=== PATIENT | female | born 1955 | race Caucasian/White ===

== ENCOUNTER 2016-07-21 14:10 | Outpatient (CLI) | payer MEDICARE | END 2016-07-21 23:59 | DX: R41.82 Altered mental status, unspecified (principal) ==

== ENCOUNTER 2016-08-02 15:44 | Outpatient (CLI) | payer MEDICARE | END 2016-08-02 15:45 | disposition home or self-care (01) | DX: Z79.899 Other long term (current) drug therapy (principal) ==

== ENCOUNTER 2016-08-24 12:12 | Outpatient (CLI) | payer MEDICARE | END 2016-08-24 12:13 | disposition home or self-care (01) | DX: M25.551 Pain in right hip (principal) ==

== ENCOUNTER 2016-08-24 13:15 | Inpatient (IN) | payer MEDICARE ==
[2016-08-24] MEDS ORDERED: ACETAMINOPHEN 1,000 MG/100 ML 100 ML IV STA (13:48)
[2016-08-24] MEDS ORDERED: ACETAMINOPHEN 1,000 MG/100 ML 100 ML IV ONE (13:50)
[2016-08-24] MEDS ORDERED: ONDANSETRON ODT 4 MG TABLET TL PRN (13:55)
[2016-08-24] MEDS ORDERED: ACETAMINOPHEN 325 MG TABLET PO PRN (13:55)
[2016-08-24] MEDS ORDERED: ONDANSETRON 4 MG/2 ML VIAL IVP PRN (13:55)
[2016-08-24] MEDS ORDERED: SODIUM CHLORIDE FLUSH 0.9% 10 ML SYRINGE IVP PRN (13:55)
[2016-08-24] MEDS ORDERED: lamoTRIgine 100 MG TABLET PO SCH (14:00)
[2016-08-24] MEDS: SODIUM CHLORIDE FLUSH 0.9% 10 ML SYRINGE IVP SCH ×2 (15:35→21:49)
[2016-08-24] MEDS: HYDROmorphone 1 MG/ML SYRINGE IVP PRN (18:35)
[2016-08-24] MEDS ORDERED: cefTRIAXone 500 MG VIAL IVP SCH (18:40)
[2016-08-24] MEDS: cefTRIAXone 1 GM in SODIUM CHLORIDE 0.9% MINIBAG 100 ML IV SCH (19:11)
[2016-08-24] MEDS: levETIRAcetam 250 MG TABLET PO SCH (21:38)
[2016-08-24] MEDS: ATORVASTATIN 10 MG TABLET PO SCH (21:38)
[2016-08-24] MEDS: DOCUSATE SODIUM 100 MG CAPSULE PO SCH (21:39)
[2016-08-24] MEDS: lamoTRIgine 25 MG TABLET PO SCH (21:39)
[2016-08-24] MEDS: oxyCODONE 5 MG TABLET PO PRN (21:45)
[2016-08-25] MEDS: SODIUM CHLORIDE 0.9% 1,000 ML IV SCH ×2 (01:24→16:27)
[2016-08-25] MEDS: HYDROmorphone 1 MG/ML SYRINGE IVP PRN ×3 (02:01→10:18)
[2016-08-25] MEDS: SODIUM CHLORIDE FLUSH 0.9% 10 ML SYRINGE IVP SCH ×3 (05:13→22:14)
[2016-08-25] MEDS ORDERED: ASPIRIN EC 81 MG TABLET PO SCH (09:00)
[2016-08-25] MEDS: cefTRIAXone 1 GM in SODIUM CHLORIDE 0.9% MINIBAG 100 ML IV SCH (09:01)
[2016-08-25] MEDS: lamoTRIgine 25 MG TABLET PO SCH ×2 (09:05→20:08)
[2016-08-25] MEDS: DOCUSATE SODIUM 100 MG CAPSULE PO SCH ×2 (09:12→20:09)
[2016-08-25] MEDS: POLYETHYLENE GLYCOL 3350 17 GM PACKET PO SCH (09:12)
[2016-08-25] MEDS ORDERED: PROPOFOL 200 MG/20 ML VIAL IVP ONE (11:52)
[2016-08-25] MEDS ORDERED: ACETAMINOPHEN 1,000 MG/100 ML VIAL IV ONE (11:52)
[2016-08-25] MEDS ORDERED: PHENYLEPHRINE 50 MG/5 ML VIAL IV ONE (11:52)
[2016-08-25] MEDS ORDERED: TRANEXAMIC ACID 1,000 MG/10 ML VIAL IV ONE (11:52)
[2016-08-25] MEDS ORDERED: DEXAMETHASONE 4 MG/ML VIAL IVP ONE (11:52)
[2016-08-25] MEDS ORDERED: MIDAZOLAM 2 MG/2 ML VIAL IVP ONE (11:52)
[2016-08-25] MEDS ORDERED: ceFAZolin 2 GM/50 ML 50 ML IV ONE (12:24)
[2016-08-25] MEDS ORDERED: LACTATED RINGERS 1,000 ML IV ONE (13:07)
[2016-08-25] MEDS ORDERED: ONDANSETRON 4 MG/2 ML VIAL IVP PRN (14:40)
[2016-08-25] MEDS: ceFAZolin 2 GM/50 ML 50 ML IV SCH (19:57)
[2016-08-25] MEDS: ATORVASTATIN 10 MG TABLET PO SCH (20:09)
[2016-08-25] MEDS: levETIRAcetam 250 MG TABLET PO SCH (20:09)
[2016-08-25] MEDS: risperiDONE 1 MG TABLET PO SCH (22:13)
[2016-08-26] MEDS: HYDROmorphone 1 MG/ML SYRINGE IVP PRN ×3 (00:38→10:04)
[2016-08-26] MEDS: SODIUM CHLORIDE FLUSH 0.9% 10 ML SYRINGE IVP PRN (00:39)
[2016-08-26] MEDS: ceFAZolin 2 GM/50 ML 50 ML IV SCH (04:28)
[2016-08-26] MEDS: SODIUM CHLORIDE 0.9% 1,000 ML IV SCH ×3 (04:29→22:06)
[2016-08-26] MEDS: SODIUM CHLORIDE FLUSH 0.9% 10 ML SYRINGE IVP SCH ×3 (05:05→21:15)
[2016-08-26] MEDS: POLYETHYLENE GLYCOL 3350 17 GM PACKET PO SCH (08:56)
[2016-08-26] MEDS: cefTRIAXone 1 GM in SODIUM CHLORIDE 0.9% MINIBAG 100 ML IV SCH (08:57)
[2016-08-26] MEDS: ASPIRIN EC 325 MG TABLET PO SCH (08:57)
[2016-08-26] MEDS: lamoTRIgine 25 MG TABLET PO SCH ×2 (08:57→21:19)
[2016-08-26] MEDS: DOCUSATE SODIUM 100 MG CAPSULE PO SCH ×2 (08:57→21:18)
[2016-08-26] MEDS: oxyCODONE 5 MG TABLET PO PRN (18:46)
[2016-08-26] MEDS ORDERED: risperiDONE 1 MG/ML SOLUTION PO SCH (21:00)
[2016-08-26] MEDS ORDERED: risperiDONE 1 MG TABLET PO SCH ×2 (21:00→22:00)
[2016-08-26] MEDS: levETIRAcetam 250 MG TABLET PO SCH (21:15)
[2016-08-26] MEDS: risperiDONE 1 MG TABLET PO SCH (21:18)
[2016-08-26] MEDS: ATORVASTATIN 10 MG TABLET PO SCH (21:19)
[2016-08-26] MEDS: NITROFURANTOIN MACRO 100 MG CAPSULE PO SCH (21:21)
[2016-08-27] MEDS: HYDROmorphone 1 MG/ML SYRINGE IVP PRN ×4 (05:48→20:58)
[2016-08-27] MEDS: SODIUM CHLORIDE FLUSH 0.9% 10 ML SYRINGE IVP SCH ×3 (05:49→21:01)
[2016-08-27] MEDS: SODIUM CHLORIDE FLUSH 0.9% 10 ML SYRINGE IVP PRN (10:17)
[2016-08-27] MEDS: POLYETHYLENE GLYCOL 3350 17 GM PACKET PO SCH (10:37)
[2016-08-27] MEDS: SODIUM CHLORIDE 0.9% 1,000 ML IV SCH ×2 (10:37→21:01)
[2016-08-27] MEDS: lamoTRIgine 25 MG TABLET PO SCH ×2 (10:38→20:50)
[2016-08-27] MEDS: NITROFURANTOIN MACRO 100 MG CAPSULE PO SCH ×2 (10:38→20:50)
[2016-08-27] MEDS: DOCUSATE SODIUM 100 MG CAPSULE PO SCH ×2 (10:38→20:51)
[2016-08-27] MEDS: ASPIRIN EC 325 MG TABLET PO SCH (10:38)
[2016-08-27] MEDS: ATORVASTATIN 10 MG TABLET PO SCH (20:50)
[2016-08-27] MEDS: levETIRAcetam 250 MG TABLET PO SCH (20:51)
[2016-08-27] MEDS: risperiDONE 1 MG TABLET PO SCH (21:01)
[2016-08-28] MEDS: SODIUM CHLORIDE FLUSH 0.9% 10 ML SYRINGE IVP SCH (06:31)
[2016-08-28] MEDS ORDERED: DOCUSATE SODIUM 250 MG CAPSULE PO SCH (09:00)
[2016-08-28] MEDS ORDERED: SENNA 8.6 MG TABLET PO SCH (09:00)
[2016-08-28] MEDS: lamoTRIgine 25 MG TABLET PO SCH (09:56)
[2016-08-28] MEDS: ASPIRIN EC 325 MG TABLET PO SCH (09:57)
[2016-08-28] MEDS: POLYETHYLENE GLYCOL 3350 17 GM PACKET PO SCH (09:57)
[2016-08-28] MEDS: NITROFURANTOIN MACRO 100 MG CAPSULE PO SCH (09:57)
[2016-08-28] MEDS: DOCUSATE SODIUM 100 MG CAPSULE PO SCH (09:57)
[2016-08-28] MEDS: oxyCODONE 5 MG TABLET PO PRN (09:58)
== END 2016-08-28 10:35 | DRG 470 ==
PROC: 0SRR01Z Replacement of Right Hip Joint, Femoral Surface with Metal Synthetic Substitute, Open Approach (ICD-10-PCS; principal; 2016-08-25 12:00)
PROC: 30233N1 Transfusion of Nonautologous Red Blood Cells into Peripheral Vein, Percutaneous Approach (ICD-10-PCS; 2016-08-26)
DX: S72.031A Displaced midcervical fracture of right femur, initial encounter for closed fracture (principal); S72.001A Fracture of unspecified part of neck of right femur, initial encounter for closed fracture; W19.XXXA Unspecified fall, initial encounter; N18.9 Chronic kidney disease, unspecified; D64.9 Anemia, unspecified; R56.9 Unspecified convulsions; Z86.73 Personal history of transient ischemic attack (TIA), and cerebral infarction without residual deficits; G11.9 Hereditary ataxia, unspecified; D62 Acute posthemorrhagic anemia; N39.0 Urinary tract infection, site not specified; R64 Cachexia; W18.30XA Fall on same level, unspecified, initial encounter; Y92.481 Parking lot as the place of occurrence of the external cause; G40.909 Epilepsy, unspecified, not intractable, without status epilepticus; R13.10 Dysphagia, unspecified; I69.319 Unspecified symptoms and signs involving cognitive functions following cerebral infarction; N18.3 Chronic kidney disease, stage 3 (moderate); D63.8 Anemia in other chronic diseases classified elsewhere; G93.89 Other specified disorders of brain; K21.9 Gastro-esophageal reflux disease without esophagitis; E78.5 Hyperlipidemia, unspecified; M81.0 Age-related osteoporosis without current pathological fracture; Y83.8 Other surgical procedures as the cause of abnormal reaction of the patient, or of later complication, without mention of misadventure at the time of the procedure; Z66 Do not resuscitate; Z91.81 History of falling; Z92.21 Personal history of antineoplastic chemotherapy; Z92.3 Personal history of irradiation; Z79.82 Long term (current) use of aspirin; Z68.20 Body mass index [BMI] 20.0-20.9, adult

== ENCOUNTER 2016-10-04 06:53 | Outpatient (CLI) | payer MEDICARE | END 2016-10-04 06:54 | disposition critical access hospital (66) | LOC: EMS 06:53 | PROVIDERS: ATTEND Surgery | DX: M54.5 Low back pain (principal); Z91.81 History of falling | CPT/HCPCS: A0425; A0429 ==

== ENCOUNTER 2016-10-04 07:10 | Emergency (ER) | payer MEDICARE ==
[2016-10-04] MEDS ORDERED: LIDOCAINE PATCH 5% TOP STA (07:18)
--- NOTE | 2016-10-04 07:21 | ED Physician Documentation ---
History of Present Illness - Stated complaint Stated Complaint: GLF - Chief complaint Chief Complaint: Back Pain - Additonal information Additional information: hx from pt 61 female mechanical fall on her bathroom 3 days ago landed on buttocks no head or neck injury no blood thinners intermittent pain to l spine region no numbness weakness or urinary sx wants an xray otherwise well recently, no fever cough NVD, CP SOA etc Review of Systems Constitutional: denies: Fever Cardiac: denies: Chest pain / pressure Respiratory: denies: Dyspnea GI: denies: Abdominal Pain, Nausea, Vomiting : denies: Dysuria, Incontinent, Hematuria Musculoskeletal: reports: Back pain Neurologic: denies: Focal weakness, Numbness Endocrine: denies: Easy bruising / bleeding Immunocompromised: denies: Immunocompromised PD PAST MEDICAL HISTORY - Past Medical History Cardiovascular: High cholesterol Neuro: Seizure disorder, Other GI: GERD : Renal insuffiency Psych: Depression, Anxiety Musculoskeletal: Osteoporosis - Past Surgical History Past Surgical History: Yes Neuro: Other - Present Medications Home Medications: Ambulatory Orders Medication Instructions Recorded Confirmed Acetaminophen [Tylenol] 650 mg PO Q6H PRN 08/24/16 10/04/16 Aspirin [Aspirin EC] 81 mg PO DAILY 08/24/16 10/04/16 Chlorpheniramine Maleate [Allergy] 4 mg PO Q6H PRN MDD 16 mg 08/24/16 10/04/16 Docusate Sodium 200 mg PO BID 08/24/16 10/04/16 Levetiracetam 500 mg PO QPM 08/24/16 10/04/16 Simvastatin [Zocor] 20 mg PO QPM 08/24/16 10/04/16 lamoTRIgine [LaMICtal] 75 mg PO BID 08/24/16 10/04/16 HYDROcodone/ACET 10/325 [[place] 10 1 each PO Q6H #30 tablet 08/28/16 10/04/16 mg/325 mg] oxyCODONE [Roxicodone] 5 mg PO Q4-6H #20 tablet 10/04/16 - Allergies Allergies/Adverse Reactions: Allergies Allergy/AdvReac Type Severity Reaction Status Date / Time No Known Drug Allergies Allergy Verified 10/04/16 07:23 - Social History Does the pt smoke?: No Smoking Status: Never smoker Does the pt drink ETOH?: No Does the pt have substance abuse?: No - POLST Patient has POLST: No PD ED PE NORMAL - Vitals Vital signs reviewed: Yes - General General: Alert and oriented X 3 - HEENT HEENT: Atraumatic - Neck Neck: No bony TTP - Cardiac Cardiac: RRR - Respiratory Respiratory: No respiratory distress, Clear bilaterally - Abdomen Abdomen: Non tender - Back Back: Other (mild upper to mid diffuse mid and ryann low back TTP, good ROM with midl pain) - Derm Derm: Normal color - Neuro Neuro: No motor deficit, No sensory deficit, Other (hip flex knee ext foot dorsi /plantar and great toe all 5/5, no clonus, patellar DTR 1+/4 ryann. denies saddle anesthesia) Results - Vitals Vitals: Vital Signs - 24 hr 10/04/16 10/04/16 10/04/16 07:11 09:20 11:00 Temperature 37 C Heart Rate 97 88 82 Respiratory 18 20 20 Rate Blood Pressure 119/78 112/76 O2 Saturation 97 96 96 10/04/16 13:40 Temperature Heart Rate 72 Respiratory 16 Rate Blood Pressure 131/75 H O2 Saturation 96 Oxygen O2 Source Room air - EKG (time done) 1007 Rate: Rate (enter#) Rhythm: NSR Intervals: Normal AR. No: Wide QRS (borderline, non specific) Ischemia: Normal ST segments - Rads (name of study) lspine Radiology: See rad report (30% L2 and 15% T12 compression fx mild retropulsion L2 by 4 mm, rec MRI 9or CT after d/w radia)) CXR Radiology: See rad report (no acute) CT T10-L spine Radiology: See rad report (rad report and verbal d/w radia : acute 2 column A3 burtt fx T12 with fragment retropulsion not presently impinging cord, canal stenosis T12 L2, no foraminal stenosis) PD MEDICAL DECISION MAKING - ED course ED course: obtained spine consult from [facility] - images sent and review - I spoke wit spine Dr Roberts who ec conservative tx with TLSO brace which was applied in the ER - family understands need for spine fup and will ask their PMD and/or ortho for a local referral rather than go to [place] brace placed by [employer] rep and myself, pt tolerated well, POA family taught how to manage brace anbd given written instruction and card for rep with phone number for assistance dc home to her assisted living, she has a walker and will have family with her Departure - Departure Disposition: 01 Home, Self Care Clinical Impression: T10 vertebral fracture Qualifiers: Encounter type: initial encounter Fracture type: closed Fracture morphology: burst- stable Qualified Code(s): S22.071A - Stable burst fracture of T9-T10 vertebra, initial encounter for closed fracture Condition: Good Instructions: ED Fx Comp Vertebral Follow-Up: Sofia Mccormack MD [Primary Care Provider] - Ghazala Chand MD [Provider Admit Priv/Credential] - Prescriptions: oxyCODONE [Roxicodone] 5 mg PO Q4-6H #20 tablet Comments: You have a burst fracture of the T12 spine You images were reviewed by the clinical trial specialist at [facility] and the recommendation is that you wear the brace to stabilize your spine while the bone heals. Take tylenol for mild pain and oxycodone for severe pain Please follow up with your local PMD and/or surgical training specialist for a recheck and ongoing pain medication if needed and for a referral to a local clinical trial specialist for follow up Return if worse - especially if you have numbness or weakness or trouble with your urine Discharge Date/Time: 10/04/16 13:42
[2016-10-04] MEDS ORDERED: LIDOCAINE PATCH 5% TOP ONE (08:00)
--- NOTE | 2016-10-04 09:05 | XRAY Preliminary Report ---
Exam: XR Lumbar Spine 2 View IMPRESSION: 1. Age indeterminate 30% L2 and 15% T12 superior endplate compression fractures. MRI could be conside red to assess for any acute edema. 2. Mild retropulsion of superior endplate fracture of L2 by 4 mm. 3. No significant degenerative disk disease or malalignment. [facility] SITE ID: [id number]
--- NOTE | 2016-10-04 09:08 | XRAY Report ---
EXAM: LUMBOSACRAL SPINE RADIOGRAPHY EXAM DATE: 10/04/2016 07:42 AM. CLINICAL HISTORY: Lumbar spine pain after falling on buttocks 2 days ago. COMPARISONS: None. TECHNIQUE: 3 views. FINDINGS: Alignment: No significant scoliosis. No listhesis evident. Bones: 30% anterior superior endplate compression fracture of L2 present. The fracture is age-indeter minate. No acute appearing fracture lucencies identified however. There is mild retropulsion of the s uperior endplate measuring 4 mm. There is also a compression fracture of T12 measuring approximately 15% also indeterminate in age. No retropulsion evident. 5 nonrib-bearing lumbar elements present. Disks: The lumbar disks are well-preserved. No significant degenerative disk disease identified. Facets: Mild degenerative facet disease lower lumbar spine noted. Sacroiliac Joints: Unremarkable. Soft Tissues: A right unipolar hip prosthesis present. IMPRESSION: 1. Age indeterminate 30% L2 and 15% T12 superior endplate compression fractures. MRI could be conside red to assess for any acute edema. 2. Mild retropulsion of superior endplate fracture of L2 by 4 mm. 3. No significant degenerative disk disease or malalignment. [facility] Referring Provider Line: [phone] SITE ID: [id number]
[2016-10-04] MEDS ORDERED: ACETAMINOPHEN 325 MG TABLET PO STA (09:19)
[2016-10-04] MEDS ORDERED: LORazepam 0.5 MG TABLET PO STA (09:22)
[2016-10-04] MEDS ORDERED: ACETAMINOPHEN 325 MG TABLET PO ONE (09:23)
[2016-10-04] MEDS ORDERED: LORazepam 0.5 MG TABLET ONE (09:24)
[2016-10-04] MEDS ORDERED: LORazepam 2 MG/ML SYRINGE IM STA (09:27)
[2016-10-04] MEDS ORDERED: LORazepam 2 MG/ML SYRINGE ONE (09:29)
--- NOTE | 2016-10-04 10:37 | CT Preliminary Report ---
Exam: CT Lumbar Spine W/O Impression: 1. Acute appearing incomplete burst fracture of the superior T12 vertebral body with fracture fragmen t retropulsion. 2. Old healed L2 vertebral body superior endplate fracture. 3. Central canal stenosis at T12 and at L2. 4. No evidence for significant-appearing foraminal stenosis. [facility] SITE ID: [id number]
--- NOTE | 2016-10-04 10:40 | CT Report ---
EXAM: CT LUMBAR SPINE WITHOUT CONTRAST EXAM DATE: 10/04/2016 09:50 AM. CLINICAL HISTORY: Pain post injury after a fall. Spine fracture follow-up. COMPARISONS: No prior CT.. TECHNIQUE: Thin-section axial images were acquired of the lumbar spine from T10 to S1 without contras t. Post-processing: Coronal and sagittal reformats. Other: None. In accordance with CT protocol optimization, one or more of the following dose reduction techniques w ere utilized for this exam: automated exposure control, adjustment of mA and/or KV based on patient s ize, or use of iterative reconstructive technique. FINDINGS: No scoliosis or spondylolisthesis. Moderately prominent but chronic healed L2 vertebral body superior endplate fracture with chronically posteriorly displaced or angulated fracture fragment that appear healed. Mild to moderate associated central canal stenosis and ventral thecal sac indentation. Acute appearing fracture of the superior T12 vertebral body associated with up to 40% vertebral body height loss. The configuration is consistent with an incomplete burst fracture involving the superior endplate and posterior vertebral body wall with mild posterior fracture fragment retropulsion into t he central canal, by approximately 5 mm, associated bony central canal narrowing appears mild. Multip le mildly comminuted and displaced superior T12 vertebral body fracture fragments are present. No riley dence for displaced posterior element fracture. T12-L1: No disk herniation or stenosis. L1-L2: Patent foramina. Mild degenerative disk disease. Central canal stenosis from old healed L2 fra cture. L2-L3: Mildly bulging annulus. No significant stenosis. L3-L4: Mild degenerative disk disease and facet arthropathy. Broad-based disk bulge with partially ca lcified annulus to the right of midline. No significant-appearing stenosis. L4-L5: Mild degenerative disk disease and facet arthropathy. Shallow broad-based bulge. Minimal steno sis. No evidence for nerve root compression. L5-S1: Mild chronic degenerative changes. No severe stenosis. Minimal SI joint DJD. Probable generalized skeletal demineralization. Mild diffuse posterior paraspin al muscle fatty atrophy. Impression: 1. Acute appearing incomplete burst fracture of the superior T12 vertebral body with fracture fragmen t retropulsion. 2. Old healed L2 vertebral body superior endplate fracture. 3. Central canal stenosis at T12 and at L2. 4. No evidence for significant-appearing foraminal stenosis. [facility] Referring Provider Line: [phone] SITE ID: [id number]
--- NOTE | 2016-10-04 11:08 | XRAY Preliminary Report ---
Exam: XR Chest 2 View PA/LAT IMPRESSION: 1. No acute disease in the chest. 2. Mild to moderate superior endplate T12 and L2 compression deformities, age indeterminate. [facility] SITE ID: [id number]
--- NOTE | 2016-10-04 11:10 | XRAY Report ---
EXAM: CHEST RADIOGRAPHY EXAM DATE: 10/04/2016 10:07 AM. CLINICAL HISTORY: Fall, back pain, now shortness of air too. COMPARISON: None. TECHNIQUE: 2 views. FINDINGS: Lungs/Pleura: No focal opacities evident. No pleural effusion. No pneumothorax. Normal volumes. Mediastinum: Heart size is normal. Aorta is mildly tortuous. Other: Superior endplate mild to moderate compression upon the seen involving T12. Findings are simil ar seen involving L2. IMPRESSION: 1. No acute disease in the chest. 2. Mild to moderate superior endplate T12 and L2 compression deformities, age indeterminate. [facility] Referring Provider Line: [phone] SITE ID: [id number]
[2016-10-04 14:00] VITALS: BP 131/75
== END 2016-10-04 13:42 | disposition home or self-care (01) ==
LOC: EDUNIT# → ED 07:10
DX: S22.071A Stable burst fracture of T9-T10 vertebra, initial encounter for closed fracture (principal); W01.0XXA Fall on same level from slipping, tripping and stumbling without subsequent striking against object, initial encounter; Y92.002 Bathroom of unspecified non-institutional (private) residence as the place of occurrence of the external cause; E78.00 Pure hypercholesterolemia, unspecified; K21.9 Gastro-esophageal reflux disease without esophagitis; Z79.82 Long term (current) use of aspirin
CPT/HCPCS: 71020; 72100; 72131; 93005; 99283

== ENCOUNTER 2016-10-04 19:35 | Outpatient (CLI) | payer MEDICARE | END 2016-10-04 19:36 | disposition critical access hospital (66) | LOC: EMS 19:35 | PROVIDERS: ATTEND Surgery | DX: M54.9 Dorsalgia, unspecified (principal); W19.XXXA Unspecified fall, initial encounter; Z91.81 History of falling | CPT/HCPCS: A0425; A0429 ==

== ENCOUNTER 2016-10-04 19:55 | Emergency (ER) | payer MEDICARE ==
--- NOTE | 2016-10-05 02:42 | ED Physician Documentation ---
PD HPI BACK INJURY - Stated complaint Stated Complaint: GLF, S/P COMPRESSION FRACTURE - History obtained from History obtained from: Patient, Family - History of Present Illness Location: Lower Type of injury: Fall Where injury occurred: Home Timing - onset: How many days ago (4) Timing - duration: Days (4) Timing - details: Gradual onset, Still present Quality: Pain, Spasm, Sharp Improved by: Rest, Immobilization Worsened by: Moving, Palpating Associated symptoms: No: Fever, Weakness, Numbness, Incontinent of urine, Unable to urinate, Hematuria, Incontinent of stool Contributing factors: No: Anticoagulated Similar symptoms before: Has not had sx before Recently seen: Emergency Dept (Seen here earlier today with this pain and dx with a new T12 incomplete burst fracture.) - Additional information Additional information: 61 y/o female with a history of cerebellar tumor and CVA had a fall at her assisted living facility about 3 days ago and she had progression of pain and today she asked to come to the ED. Imaging shows a new compression fracture and she was placed into a TLSO brace. She went back to her assisted living facility and she was having an issue with the brace being uncomfortable and she cut the adjustment lines to it and attempted to stand up to go to the bathroom and her walker was turned the wrong way and she sat down to the ground. She did not have a fall and was assisted to the ground. She has had a recent hip fracture and was at [facility] for recovery until about 4 days ago. She has a prior history of falls associated with her cerebellar dysfunction and she is in assisted living after having 3 falls in 90 days. Review of Systems Constitutional: denies: Fever, Myalgias Eyes: denies: Decreased vision Ears: denies: Ear pain Nose: denies: Congestion Throat: denies: Sore throat Cardiac: denies: Chest pain / pressure, Palpitations Respiratory: denies: Dyspnea, Cough GI: denies: Abdominal Pain, Nausea, Vomiting : denies: Dysuria, Frequency Skin: denies: Rash Musculoskeletal: reports: Back pain Neurologic: denies: Generalized weakness, Focal weakness PD PAST MEDICAL HISTORY - Past Medical History Cardiovascular: High cholesterol Neuro: CVA, Seizure disorder, Other GI: GERD : Renal insuffiency Psych: Depression, Anxiety Musculoskeletal: Osteoporosis Other Past Medical History: brain tumor - Past Surgical History Past Surgical History: Yes Ortho: Hip replacement Neuro: Other - Present Medications Home Medications: Ambulatory Orders Medication Instructions Recorded Confirmed Acetaminophen [Tylenol] 650 mg PO Q6H PRN 08/24/16 10/04/16 Aspirin [Aspirin EC] 81 mg PO DAILY 08/24/16 10/04/16 Chlorpheniramine Maleate [Allergy] 4 mg PO Q6H PRN MDD 16 mg 08/24/16 10/04/16 Docusate Sodium 200 mg PO BID 08/24/16 10/04/16 Levetiracetam 500 mg PO QPM 08/24/16 10/04/16 Simvastatin [Zocor] 20 mg PO QPM 08/24/16 10/04/16 lamoTRIgine [LaMICtal] 75 mg PO BID 08/24/16 10/04/16 HYDROcodone/ACET 10/325 [[place] 10 1 each PO Q6H #30 tablet 08/28/16 10/04/16 mg/325 mg] oxyCODONE [Roxicodone] 5 mg PO Q4-6H #20 tablet 10/04/16 10/04/16 - Allergies Allergies/Adverse Reactions: Allergies Allergy/AdvReac Type Severity Reaction Status Date / Time No Known Drug Allergies Allergy Verified 10/04/16 20:13 - Social History Does the pt smoke?: No Smoking Status: Never smoker Does the pt drink ETOH?: No Does the pt have substance abuse?: No - Immunizations Immunizations are current?: Yes - POLST Patient has POLST: No PD ED PE NORMAL - Vitals Vital signs reviewed: Yes (hypertensive ) - General General: No acute distress, Well developed/nourished - HEENT HEENT: Atraumatic, PERRL - Neck Neck: Supple, no meningeal sign - Cardiac Cardiac: RRR, No murmur - Respiratory Respiratory: No respiratory distress, Clear bilaterally - Abdomen Abdomen: Soft, Non tender - Back Back: No CVA TTP, Other (There is midline tenderness to the lower portion of the thoracic spine. ) - Derm Derm: Normal color, No rash - Extremities Extremities: No deformity, No edema - Neuro Neuro: No motor deficit, No sensory deficit - Psych Psych: Other (The mood is withdrawn and the affect is flat. ) Results - Vitals Vitals: Vital Signs - 24 hr 10/04/16 10/04/16 19:59 22:58 Temperature 36.5 C Heart Rate 95 85 Respiratory 12 15 Rate Blood Pressure 152/81 H 135/82 H O2 Saturation 100 97 Oxygen O2 Source Room air PD MEDICAL DECISION MAKING - ED course Complexity details: reviewed old records, reviewed results, re-evaluated patient , considered differential, d/w patient, d/w family ED course: 61 y/o female with a new T12 fracture with a recent hip fracture as well is still a risk for fall and will need more help than her assisted living facility until her fracture is healed. She is left in the ED overnight for an attempt at placement to [place] in the AM. Departure - Departure Clinical Impression: T12 vertebral fracture Qualifiers: Encounter type: initial encounter Fracture type: closed Fracture morphology: burst- stable Qualified Code(s): S22.081A - Stable burst fracture of T11-T12 vertebra, initial encounter for closed fracture Condition: Stable
[2016-10-05 04:41] LABS: BILIRUBIN,URINE NEGATIVE (NEGATIVE); PH,URINE 5.5 PH (5.0-7.5)
[2016-10-05 04:42] LABS: UA w/ MICROSCOPIC CHARGE YES
[2016-10-05 04:46] LABS: UR CULTURE IF IND NOT INDICATED
--- NOTE | 2016-10-05 07:45 | ED Physician Documentation ---
History of Present Illness - Stated complaint Stated Complaint: GLF, S/P COMPRESSION FRACTURE - Chief complaint Chief Complaint: Trauma Ch/Bk - Additonal information Additional information: pt seen by me yesterday s/p fall was a mechanical fall with hx balance issues and mechanical falls had landed on her buttocks s head or neck injury work up revealed a T 12 2 column A3 burst fx - spine consult from [facility] lived at [facility] living, had a walker, had family support and so was discharged at her assisted living she cut off her brace and then had a another fall while using her walker per EMS report (I spoke to them) the fall was witnessed by assisted living staff and no injury - pt denies any head neck injury again so she was brought back to [facility] for a new brace but none was available last night and it will be delivered this AM - pt has remained supine in bed overnight and is still neuro intact also DOP feels she will need to retrun to SNF level care - she was recently at [facility] after a hip fx will consult Review of Systems Constitutional: denies: Fever Cardiac: denies: Chest pain / pressure Respiratory: denies: Dyspnea GI: denies: Abdominal Pain Musculoskeletal: reports: Back pain Neurologic: denies: Focal weakness, Numbness PD PAST MEDICAL HISTORY - Past Medical History Cardiovascular: High cholesterol Neuro: CVA, Seizure disorder, Other GI: GERD : Renal insuffiency Psych: Depression, Anxiety Musculoskeletal: Osteoporosis Other Past Medical History: brain tumor - Past Surgical History Past Surgical History: Yes Ortho: Hip replacement Neuro: Other - Present Medications Home Medications: Ambulatory Orders Medication Instructions Recorded Confirmed Acetaminophen [Tylenol] 650 mg PO Q6H PRN 08/24/16 10/04/16 Aspirin [Aspirin EC] 81 mg PO DAILY 08/24/16 10/04/16 Chlorpheniramine Maleate [Allergy] 4 mg PO Q6H PRN MDD 16 mg 08/24/16 10/04/16 Docusate Sodium 200 mg PO BID 08/24/16 10/04/16 Levetiracetam 500 mg PO QPM 08/24/16 10/04/16 Simvastatin [Zocor] 20 mg PO QPM 08/24/16 10/04/16 lamoTRIgine [LaMICtal] 75 mg PO BID 08/24/16 10/04/16 HYDROcodone/ACET 10/325 [[place] 10 1 each PO Q6H #30 tablet 08/28/16 10/04/16 mg/325 mg] oxyCODONE [Roxicodone] 5 mg PO Q4-6H #20 tablet 10/04/16 10/04/16 - Allergies Allergies/Adverse Reactions: Allergies Allergy/AdvReac Type Severity Reaction Status Date / Time No Known Drug Allergies Allergy Verified 10/04/16 20:13 - Social History Does the pt smoke?: No Smoking Status: Never smoker Does the pt drink ETOH?: No Does the pt have substance abuse?: No - Immunizations Immunizations are current?: Yes - POLST Patient has POLST: No PD ED PE NORMAL - Vitals Vital signs reviewed: Yes - HEENT HEENT: Atraumatic - Neck Neck: No bony TTP - Cardiac Cardiac: RRR - Respiratory Respiratory: No respiratory distress, Clear bilaterally - Abdomen Abdomen: Soft, Non tender - Neuro Neuro: No motor deficit, No sensory deficit, Other (motor and sensation to legs intact) Results - Vitals Vitals: Vital Signs - 24 hr 10/04/16 10/04/16 10/05/16 19:59 22:58 03:05 Temperature 36.5 C Heart Rate 95 85 Respiratory 12 15 14 Rate Blood Pressure 152/81 H 135/82 H O2 Saturation 100 97 10/05/16 10/05/16 10/05/16 04:36 08:36 15:12 Temperature 37.1 C Heart Rate 84 104 H 99 Respiratory 14 12 18 Rate Blood Pressure 129/89 H 126/76 142/89 H O2 Saturation 100 100 100 Oxygen O2 Source Room air - Labs Labs: Laboratory Tests 10/05/16 04:20 Urine Color YELLOW Urine Clarity CLEAR Urine pH 5.5 Ur Specific [place] 1.020 Urine Protein NEGATIVE Urine Glucose (UA) NEGATIVE Urine Ketones NEGATIVE Urine Occult Blood MODERATE H Urine Nitrite NEGATIVE Urine Bilirubin NEGATIVE Urine Urobilinogen 0.2 (NORMAL) Ur Leukocyte Esterase NEGATIVE Urine RBC 6-10 H Urine WBC 4-5 Ur Squamous Epith Cells MOD Squamous H Urine Bacteria Rare Ur Microscopic Review INDICATED Urine Culture Comments NOT INDICATED PD MEDICAL DECISION MAKING - ED course ED course: this spine fx does not need surgery but does need immobilization in the TLSO brace pt has baseline balance issues and is having even more difficulty moving and transferring while wearing the TLSO removed the brace and fell within 12 hr of dc to assisted living do not feel that is a safe dispo for her will need a higher level of care such as SNF for care of fracture, management of wearing and adjusting brace, perhaps PT for learning how to safely transfer and ambulate in spine brace and to address ongoing balance issues new brace delivered and put on - pt does not like it and keeps removing it - needs freq reinforcement to remind her why it is so important SW able to place pt at [facility] Departure - Departure Disposition: 01 Home, Self Care Clinical Impression: T12 vertebral fracture Qualifiers: Encounter type: initial encounter Fracture type: closed Fracture morphology: burst- stable Qualified Code(s): S22.081A - Stable burst fracture of T11-T12 vertebra, initial encounter for closed fracture Condition: Stable Instructions: ED Fx Comp Vertebral Comments: See discharge instructions, referral, followup, and rx from yesterday ( reprinted for patient) Discharge Date/Time: 10/05/16 15:14
[2016-10-05] MEDS ORDERED: diphenhydrAMINE INJ 50 MG/ML VIAL ONE (10:43)
[2016-10-05] MEDS ORDERED: diphenhydrAMINE INJ 50 MG/ML VIAL IM STA (10:43)
[2016-10-05 15:14] VITALS: BP 142/89
== END 2016-10-05 15:14 | disposition home or self-care (01) ==
LOC: ED 19:55
DX: S22.081A Stable burst fracture of T11-T12 vertebra, initial encounter for closed fracture (principal); S22.071A Stable burst fracture of T9-T10 vertebra, initial encounter for closed fracture; W01.0XXA Fall on same level from slipping, tripping and stumbling without subsequent striking against object, initial encounter; Y92.002 Bathroom of unspecified non-institutional (private) residence as the place of occurrence of the external cause; E78.00 Pure hypercholesterolemia, unspecified; K21.9 Gastro-esophageal reflux disease without esophagitis; Z86.73 Personal history of transient ischemic attack (TIA), and cerebral infarction without residual deficits; D49.6 Neoplasm of unspecified behavior of brain
CPT/HCPCS: 71020; 72100; 72131; 81001; 93005; 93010; 96372; 99283; 99284; A9270; J2060; 81003; 87086

== ENCOUNTER 2017-03-08 17:10 | Outpatient (CLI) | payer MEDICARE ==
--- NOTE | 2017-03-08 17:45 | XRAY Preliminary Report ---
Exam: XR ANKLE 3 VIEW RT IMPRESSION: Suspicion of nondisplaced lateral malleolar fracture. [facility] The call report notification system was initiated by Dr. Jose Alberto Mckeon at 17:37 hrs on 03/08/17. The above findings were discussed with Dr Mccormack by Dr. Jose Alberto Mckeon at 17:44 hrs on 03/08/17. SITE ID: [id number]
--- NOTE | 2017-03-08 17:48 | XRAY Report ---
EXAM: RIGHT ANKLE RADIOGRAPHY EXAM DATE: 03/08/2017 05:25 PM. CLINICAL HISTORY: Trauma, pain. COMPARISON: None. TECHNIQUE: 3 views. FINDINGS: Bones: Osteopenia. Subtle oblique lucency in the lateral malleolus suspicious for nondisplaced fractu re. Otherwise unremarkable. Joints: Normal. No effusion. No subluxations. The ankle mortise is normally aligned. Soft Tissues: Prominent soft tissue swelling over lateral malleolus. IMPRESSION: Suspicion of nondisplaced lateral malleolar fracture. [facility] The call report notification system was initiated by Dr. Jose Alberto Mckeon at 17:37 hrs on 03/08/17. The above findings were discussed with Dr Mccormack by Dr. Jose Alberto Mckeon at 17:44 hrs on 03/08/17. Referring Provider Line: [phone] SITE ID: [id number]
== END 2017-03-08 17:11 | disposition home or self-care (01) ==
LOC: DI 17:10
PROVIDERS: ATTEND Internal Medicine
DX: M25.571 Pain in right ankle and joints of right foot (principal)

== ENCOUNTER 2017-03-27 09:39 | Outpatient (CLI) | payer MEDICARE | END 2017-03-27 09:40 | disposition critical access hospital (66) | LOC: EMS 09:39 | PROVIDERS: ATTEND Surgery | DX: R41.82 Altered mental status, unspecified (principal); W18.30XA Fall on same level, unspecified, initial encounter; Y92.013 Bedroom of single-family (private) house as the place of occurrence of the external cause | CPT/HCPCS: A0425; A0429 ==

== ENCOUNTER 2017-04-16 12:18 | Outpatient (CLI) | payer MEDICARE | END 2017-04-16 12:19 | disposition critical access hospital (66) | LOC: EMS 12:18 | PROVIDERS: ATTEND Surgery | DX: S09.8XXA Other specified injuries of head, initial encounter (principal); W01.0XXA Fall on same level from slipping, tripping and stumbling without subsequent striking against object, initial encounter; Y92.002 Bathroom of unspecified non-institutional (private) residence as the place of occurrence of the external cause | CPT/HCPCS: A0425; A0429 ==

== ENCOUNTER 2017-04-16 12:29 | Emergency (ER) | payer MEDICARE ==
--- NOTE | 2017-04-16 13:39 | CT Preliminary Report ---
Exam: CT HEAD W/O IMPRESSION: 1. Negative for intracranial acute hemorrhage. 2. Right periorbital superficial hematoma. 3. Chronic encephalomalacia in the right occipital and temporal lobe. 4. 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 [facility] SITE ID: [id number]
--- NOTE | 2017-04-16 13:41 | CT Report ---
EXAM: CT HEAD EXAM DATE: 04/16/2017 01:23 PM. CLINICAL HISTORY: Fall. COMPARISON: None. TECHNIQUE: Multiaxial CT images were obtained from the foramen magnum to the vertex. Reformats: Coron al. IV contrast: None. In accordance with CT protocol optimization, one or more of the following dose reduction techniques w ere utilized for this exam: automated exposure control, adjustment of mA and/or KV based on patient s ize, or use of iterative reconstructive technique. FINDINGS: Parenchyma: There is encephalomalacia in the right posterior temporal lobe and occipital lobe. There are findings of previous right-sided craniotomy with intracranial surgical clips. There are calcifica tions in the maria teresa which are chronic. There are bilateral basal ganglia calcifications. There is a mod erate degree of periventricular white matter hypodensity. No midline shift. Extraaxial Spaces: No subdural or epidural hematoma. Ventricles: The ventricles appear symmetric in size and normal in location. Sinuses and Orbits: There is opacification of the right mastoid sinus. Bones: There is a superficial right periorbital hematoma. Both globes appear normal in size and densi ty. No posterior orbital hematoma. Other: None. IMPRESSION: 1. Negative for intracranial acute hemorrhage. 2. Right periorbital superficial hematoma. 3. Chronic encephalomalacia in the right occipital and temporal lobe. 4. 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 [facility] Referring Provider Line: [phone] SITE ID: [id number]
--- NOTE | 2017-04-16 13:45 | CT Preliminary Report ---
Exam: CT CERVICAL SPINE W/O IMPRESSION: 1. No fracture. 2. 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 3. Right mastoid sinus opacification H [facility] SITE ID: [id number]
--- NOTE | 2017-04-16 13:48 | CT Report ---
EXAM: CT CERVICAL SPINE WITHOUT CONTRAST DATE: 04/16/2017 01:23 PM. HISTORY: Fall with facial trauma and soft tissue swelling. COMPARISONS: None. TECHNIQUE: Thin-section axial images were acquired of the cervical spine without contrast. Post-proce ssing: Coronal and sagittal reformats. Other: None. In accordance with CT protocol optimization, one or more of the following dose reduction techniques w ere utilized for this exam: automated exposure control, adjustment of mA and/or KV based on patient s ize, or use of iterative reconstructive technique. FINDINGS: Alignment: There is minimal retrolisthesis of C4 over C5. There is no significant scoliosis. Alignme nt at other levels appear satisfactory. Bones: There is diffuse opacification of the right mastoid sinus. The anterior wall of the mastoid ap pears absent, question previous surgery. No acute fracture. Interspace Levels/Facets: There is [id number] central spinal canal bony narrowing from hypertrophy of the posterior eleme nts at C3 and C4. There is moderate disk height loss at C5-C6. There is disk osteophyte spurring at C 3-C4 and C4-C5. Musculature: Normal. No fatty atrophy. Other: The paravertebral and prevertebral soft tissues are unremarkable. Trachea is midline. No apica l pneumothorax. IMPRESSION: 1. No fracture. 2. 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 3. Right mastoid sinus opacification H [facility] Referring Provider Line: [phone] SITE ID: [id number]
--- NOTE | 2017-04-16 13:49 | CT Preliminary Report ---
Exam: CT FACIAL BONES W/O IMPRESSION: 1. Superficial hematoma lateral to the right orbit with adjacent edema and evidence of laceration. 2. No fracture. 3. No posterior orbital hematoma. [facility] SITE ID: [id number]
--- NOTE | 2017-04-16 13:51 | CT Report ---
EXAM: CT MAXILLOFACIAL WITHOUT CONTRAST EXAM DATE: 04/16/2017 01:23 PM. CLINICAL HISTORY: Fall with right facial soft tissue swelling. COMPARISONS: None. TECHNIQUE: Thin-section axial images were acquired of the face without contrast. Post-processing: Cor onal and sagittal reformats. Other: None. In accordance with CT protocol optimization, one or more of the following dose reduction techniques w ere utilized for this exam: automated exposure control, adjustment of mA and/or KV based on patient s ize, or use of iterative reconstructive technique. FINDINGS: Soft Tissue: There is a hematoma within the subcutaneous tissue located lateral to the anterior left zygoma. This hematoma measures 1.6 x 1.3 x 1.9 cm. There is adjacent skin thickening and subcutaneous edema. There is soft tissue gas indicating a laceration. No radiopaque foreign body. No other abnorm al fluid collection. Orbits: Both globes appear normal in density and contour. No posterior orbital hematoma or mass. Bones: Negative for an acute fracture. Temporomandibular Joints: Temporomandibular joints appear in satisfactory alignment. Sinuses: There is diffuse opacification of the right mastoid sinus with erosion of the anterior wall of the mastoid sinus versus previous mastoid surgery. Other paranasal sinuses appear clear. Other: None. IMPRESSION: 1. Superficial hematoma lateral to the right orbit with adjacent edema and evidence of laceration. 2. No fracture. 3. No posterior orbital hematoma. [facility] Referring Provider Line: [phone] SITE ID: [id number]
--- NOTE | 2017-04-16 14:04 | ED Physician Documentation ---
History of Present Illness - Stated complaint Stated Complaint: FALL - Chief complaint Chief Complaint: Trauma Hd/Nk - History obtained from History obtained from: Patient (pt is here for evaluation of a fall. she arrived by EMS. she reports tht she walked into a room and tripped and fell and hit her head. questionable LOC.) Review of Systems Constitutional: denies: Fever, Chills Eyes: denies: Decreased vision, Photophobia Ears: denies: Ear pain, Tinnitus/ringing Cardiac: denies: Chest pain / pressure, Palpitations Respiratory: denies: Dyspnea, Cough, Hemoptysis, Wheezing GI: denies: Abdominal Pain, Nausea, Vomiting, Constipation, Diarrhea : denies: Dysuria Skin: reports: Lesions (right eye) Musculoskeletal: denies: Neck pain, Back pain, Extremity pain, Joint pain, Joint swelling Neurologic: reports: Head injury. denies: Generalized weakness, Focal weakness , Difficulty speaking, Syncope, Confused, Altered mental status, Headache PD PAST MEDICAL HISTORY - Past Medical History Cardiovascular: High cholesterol Neuro: CVA, Seizure disorder, Other GI: GERD : Renal insuffiency Psych: Depression, Anxiety Musculoskeletal: Osteoporosis - Past Surgical History Past Surgical History: Yes Ortho: Hip replacement Neuro: Other - Present Medications Home Medications: Ambulatory Orders Medication Instructions Recorded Confirmed Acetaminophen [Tylenol] 650 mg PO Q6H PRN 08/24/16 04/16/17 Aspirin [Aspirin EC] 81 mg PO DAILY 08/24/16 04/16/17 Chlorpheniramine Maleate [Allergy] 4 mg PO Q6H PRN MDD 16 mg 08/24/16 04/16/17 Docusate Sodium 200 mg PO BID 08/24/16 04/16/17 Simvastatin [Zocor] 20 mg PO QPM 08/24/16 04/16/17 lamoTRIgine [LaMICtal] 75 mg PO BID 08/24/16 04/16/17 levETIRAcetam [Levetiracetam] 500 mg PO QPM 08/24/16 04/16/17 Citalopram [CeleXA] 10 mg PO DAILY 03/27/17 04/16/17 traMADol [Ultram] 12.5 mg PO Q4HR PRN 03/27/17 04/16/17 ALPRAZolam [Alprazolam] 1 tab PO DAILY PRN 04/16/17 04/16/17 Clotrimazole 1 packet TOP BID 04/16/17 04/16/17 hydrOXYzine HCl [Hydroxyzine HCl] 2 tab PO QPM 04/16/17 04/16/17 - Allergies Allergies/Adverse Reactions: Allergies Allergy/AdvReac Type Severity Reaction Status Date / Time No Known Drug Allergies Allergy Verified 04/16/17 13:01 - Social History Does the pt smoke?: No Smoking Status: Never smoker Does the pt drink ETOH?: No Does the pt have substance abuse?: No - Immunizations Immunizations are current?: Yes - POLST Patient has POLST: No PD ED PE NORMAL - Vitals Vital signs reviewed: Yes - General General: Alert and oriented X 3, No acute distress - HEENT HEENT: PERRL, EOMI, Moist mucous membranes. No: Atraumatic (pt with contusion and swelling lateral to and just inferior to the right eye) - Cardiac Cardiac: RRR, No murmur - Respiratory Respiratory: No respiratory distress, Clear bilaterally - Abdomen Abdomen: Soft, Non tender, Non distended - Derm Derm: Other (bruising to the right eye) - Extremities Extremities: No deformity, No edema, Other (pt with walking boot to right LE from prior injury. ) - Neuro Neuro: Alert and oriented X 3 Eye Opening: Spontaneous Motor: Obeys Commands Verbal: Oriented GCS Score: 15 - Psych Psych: Normal mood, Normal affect Results - Vitals Vitals: Vital Signs - 24 hr 04/16/17 12:54 Temperature 36 C L Heart Rate 86 Respiratory 15 Rate Blood Pressure 127/83 H O2 Saturation 100 Oxygen O2 Source Room air - Rads (name of study) head/c-spine/face Radiology: Final report received PD MEDICAL DECISION MAKING - ED course Complexity details: d/w patient ED course: pt with wht appears to be mechanical fall. no fractures on the CT scans. the abrasion around the right eye does not need stitches. Discussed this with the pt and the family. we discussed ICE. pt does have some right thigh pain but has good ROM of her hip and knee. we discussed X-ray but decied to hold for now. informed her that she needed to return to the ER for any new or worsening symptoms . Departure - Departure Disposition: 01 Home, Self Care Clinical Impression: Fall, Contusion of face Condition: Good Instructions: Falls Risks Prevent Follow-Up: Sofia Mccormack MD [Primary Care Provider] - Comments: keep ice over the right side of your face. return to the ER for any new or worsening symptoms.
[2017-04-16 14:40] VITALS: BP 121/83
== END 2017-04-16 14:34 | disposition home or self-care (01) ==
LOC: EDUNIT# → ED 12:29
DX: S00.83XA Contusion of other part of head, initial encounter (principal); W01.0XXA Fall on same level from slipping, tripping and stumbling without subsequent striking against object, initial encounter; E78.00 Pure hypercholesterolemia, unspecified; Z86.73 Personal history of transient ischemic attack (TIA), and cerebral infarction without residual deficits; N28.9 Disorder of kidney and ureter, unspecified; M81.0 Age-related osteoporosis without current pathological fracture; Z79.82 Long term (current) use of aspirin
CPT/HCPCS: 70450; 70486; 72125; 99282; 99284

== ENCOUNTER 2017-04-22 12:42 | Outpatient (CLI) | payer MEDICARE | END 2017-04-22 12:43 | disposition critical access hospital (66) | LOC: EMS 12:42 | PROVIDERS: ATTEND Surgery | DX: S09.93XA Unspecified injury of face, initial encounter (principal); W18.39XA Other fall on same level, initial encounter; Y92.89 Other specified places as the place of occurrence of the external cause | CPT/HCPCS: A0425; A0429 ==

== ENCOUNTER 2017-04-22 12:59 | Emergency (ER) | payer MEDICARE ==
--- NOTE | 2017-04-22 14:39 | ED Physician Documentation ---
History of Present Illness - Stated complaint Stated Complaint: GLF, DEMENTIA - Chief complaint Chief Complaint: Laceration - Additonal information Additional information: hx from pt and EMR 61 f per EMR hx brain tumor s/p surgery rad chemo and with residual cerebellar deficits and freq falls fell again today she is not sure why she thinks she was using a walker but she is not sure she thinks she had LOC but she is not sure her head hurts she thinks maybe her neck hurts no blood thinner recorded pt denies fever cough NVD urinary sx or other recent illness Review of Systems Constitutional: denies: Fever, Chills Cardiac: denies: Chest pain / pressure Respiratory: denies: Dyspnea, Cough GI: denies: Abdominal Pain, Nausea, Vomiting : denies: Dysuria Musculoskeletal: reports: Neck pain Neurologic: reports: Confused (baseline per EMR review), Headache, Head injury Endocrine: denies: Easy bruising / bleeding Immunocompromised: denies: Immunocompromised PD PAST MEDICAL HISTORY - Past Medical History Cardiovascular: High cholesterol Neuro: Dementia, CVA, Seizure disorder, Other GI: GERD : Renal insuffiency Psych: Depression, Anxiety Musculoskeletal: Osteoporosis - Past Surgical History Past Surgical History: Yes Ortho: Hip replacement Neuro: Other - Present Medications Home Medications: Ambulatory Orders Medication Instructions Recorded Confirmed Aspirin [Aspirin EC] 81 mg PO DAILY 08/24/16 04/22/17 Docusate Sodium 200 mg PO BID 08/24/16 04/22/17 Simvastatin [Zocor] 20 mg PO QPM 08/24/16 04/22/17 lamoTRIgine [LaMICtal] 75 mg PO BID 08/24/16 04/22/17 levETIRAcetam [Levetiracetam] 500 mg PO QPM 08/24/16 04/22/17 Citalopram [CeleXA] 10 mg PO DAILY 03/27/17 04/22/17 traMADol [Ultram] 12.5 mg PO Q4HR PRN 03/27/17 04/22/17 ALPRAZolam [Alprazolam] 1 tab PO DAILY PRN 04/16/17 04/22/17 hydrOXYzine HCl [Hydroxyzine HCl] 2 tab PO QPM 04/16/17 04/22/17 Cholecalciferol (Vitamin D3) 1 cap PO DAILY 04/22/17 04/22/17 [Vitamin D3] - Allergies Allergies/Adverse Reactions: Allergies Allergy/AdvReac Type Severity Reaction Status Date / Time No Known Drug Allergies Allergy Verified 04/22/17 13:16 - Social History Does the pt smoke?: No Smoking Status: Never smoker Does the pt drink ETOH?: No Does the pt have substance abuse?: No - Immunizations Immunizations are current?: Yes - POLST Patient has POLST: No PD ED PE NORMAL - Vitals Vital signs reviewed: Yes - General General: No: Alert and oriented X 3 (quite confused, awake alert, moves all ext) - HEENT HEENT: PERRL, Other (aged bruising R periorbital) - Neck Neck: Other (mild TTP non focal) - Cardiac Cardiac: RRR - Respiratory Respiratory: No respiratory distress, Clear bilaterally - Abdomen Abdomen: Non tender - Derm Derm: Other (old bruiisng and dried lac to face) - Neuro Neuro: No motor deficit, No sensory deficit. No: Alert and oriented X 3 Eye Opening: Spontaneous Motor: Obeys Commands Verbal: Confused GCS Score: 14 Results - Vitals Vitals: Vital Signs - 24 hr 04/22/17 04/22/17 04/22/17 13:10 14:11 15:11 Temperature 36.8 C Heart Rate 84 81 83 Respiratory 17 14 14 Rate Blood Pressure 126/85 H 126/84 H 127/78 O2 Saturation 98 100 100 Oxygen O2 Source Room air - Rads (name of study) CTH Radiology: See rad report (no acute) CT CS Radiology: See rad report (no acute) PD MEDICAL DECISION MAKING - ED course ED course: pt lives in a long term/ assisted living Amanda will call the staff Departure - Departure Disposition: 01 Home, Self Care Clinical Impression: Fall Qualifiers: Encounter type: initial encounter Qualified Code(s): W19.XXXA - Unspecified fall, initial encounter Head injury Qualifiers: Encounter type: initial encounter Qualified Code(s): S09.90XA - Unspecified injury of head, initial encounter Instructions: ED Head Injury Closed Follow-Up: Sofia Mccormack MD [Primary Care Provider] - (next week for a recheck) Comments: Todays CT scans do not show any new injuries - no broken bones and no bleeding in the brain Please always always use your walker and ask for assistance with standing, transferring and ambulating
--- NOTE | 2017-04-22 15:18 | CT Preliminary Report ---
Exam: CT HEAD W/O IMPRESSION: Atrophy and other chronic findings. No definite acute disease. [facility] SITE ID: [id number]
--- NOTE | 2017-04-22 15:20 | CT Report ---
EXAM: CT HEAD EXAM DATE: 04/22/2017 03:09 PM. CLINICAL HISTORY: Fall, pain. COMPARISON: 04/16/2017. TECHNIQUE: Multiaxial CT images were obtained from the foramen magnum to the vertex. Reformats: Coron al. IV contrast: None. In accordance with CT protocol optimization, one or more of the following dose reduction techniques w ere utilized for this exam: automated exposure control, adjustment of mA and/or KV based on patient s ize, or use of iterative reconstructive technique. FINDINGS: Parenchyma: No intraparenchymal hemorrhage. No evidence of mass, midline shift, or CT findings of acu te infarction. Right occipitoparietal encephalomalacia. Quintanilla-white differentiation is distinct. Diffu se chronic microangiopathic white matter changes. Extraaxial Spaces: Diffuse prominence of CSF-containing structures, more than expected at this age. N o subdural or epidural collections. Ventricles: The ventricles and cortical sulci are enlarged, consistent with age-related tissue loss. Sinuses and orbits: Clear sinuses, unremarkable orbits. Bones: Previous right craniotomy and other chronic findings.. Other: None. IMPRESSION: Atrophy and other chronic findings. No definite acute disease. [facility] Referring Provider Line: [phone] SITE ID: [id number]
--- NOTE | 2017-04-22 15:21 | CT Preliminary Report ---
Exam: CT CERVICAL SPINE W/O IMPRESSION: Chronic findings. No acute disease. [facility] SITE ID: [id number]
--- NOTE | 2017-04-22 15:24 | CT Report ---
EXAM: CT CERVICAL SPINE WITHOUT CONTRAST DATE: 04/22/2017 03:09 PM. HISTORY: Fall, pain. COMPARISONS: 04/16/2017. TECHNIQUE: Thin-section axial images were acquired of the cervical spine without contrast. Post-proce ssing: Coronal and sagittal reformats. Other: None. In accordance with CT protocol optimization, one or more of the following dose reduction techniques w ere utilized for this exam: automated exposure control, adjustment of mA and/or KV based on patient s ize, or use of iterative reconstructive technique. FINDINGS: Alignment: Mild scoliosis. No listhesis. Bones: No fracture or bone lesion. Postoperative changes of right mastoid with opacification of right mastoid air cells. Interspace Levels/Facets: Mild disk space narrowing at C3-C4, C4-C5, and C5-C6, with vacuum phenomeno n at C5-C6. Other disk spaces well-preserved. Mild generalized degenerative changes. Musculature: Unremarkable. Other: The paravertebral and prevertebral soft tissues are unremarkable. The lung apices are clear. IMPRESSION: Chronic findings. No acute disease. [facility] Referring Provider Line: [phone] SITE ID: [id number]
[2017-04-22 16:44] VITALS: BP 138/82
== END 2017-04-22 16:44 | disposition home or self-care (01) ==
LOC: EDBD → EDUNIT# → ED 12:59
DX: S09.90XA Unspecified injury of head, initial encounter (principal); W18.30XA Fall on same level, unspecified, initial encounter; F03.90 Unspecified dementia, unspecified severity, without behavioral disturbance, psychotic disturbance, mood disturbance, and anxiety; Z86.73 Personal history of transient ischemic attack (TIA), and cerebral infarction without residual deficits; Z96.649 Presence of unspecified artificial hip joint; Z91.81 History of falling; Z92.21 Personal history of antineoplastic chemotherapy; Z79.82 Long term (current) use of aspirin
CPT/HCPCS: 70450; 72125; 99283; 99284

== ENCOUNTER 2017-05-09 14:38 | Outpatient (CLI) | payer MEDICARE | END 2017-05-09 14:39 | disposition EMS.NT | LOC: EMS 14:38 | PROVIDERS: ATTEND Surgery | DX: Z03.89 Encounter for observation for other suspected diseases and conditions ruled out (principal) ==

== ENCOUNTER 2017-06-20 16:56 | Outpatient (CLI) | payer MEDICARE | END 2017-06-20 16:57 | disposition EMS.NT | LOC: EMS 16:56 | PROVIDERS: ATTEND Surgery | DX: Z03.89 Encounter for observation for other suspected diseases and conditions ruled out (principal) ==

== ENCOUNTER 2017-07-16 14:38 | Outpatient (CLI) | payer MEDICARE | END 2017-07-16 14:39 | disposition critical access hospital (66) | LOC: EMS 14:38 | PROVIDERS: ATTEND Surgery | DX: R55 Syncope and collapse (principal) | CPT/HCPCS: A0425; A0429 ==

== ENCOUNTER 2017-07-16 14:51 | Emergency (ER) | payer MEDICARE ==
--- NOTE | 2017-07-16 15:08 | ED Physician Documentation ---
PD HPI ALTERED MENTAL STATUS - Stated complaint Stated Complaint: ALOC - Chief complaint Chief Complaint: Neuro - History obtained from History obtained from: EMS - History of Present Illness Timing - onset: Today (61-year-old woman comes from an [facility]. Per the chart she has a history of brain tumor with craniotomy and some memory and potentially some behavioral difficulties. Per the chart she usually talks but is confused and walks with a walker. I guess today at lunch she kind of slumped over and maybe was unconscious and really has not returned to her baseline. For paramedics she was a little hypotensive but back to normal here. She is really unable to give me any useful history.) Review of Systems Unable to obtain: Confused PD PAST MEDICAL HISTORY - Past Medical History Cardiovascular: High cholesterol Neuro: Dementia, CVA, Seizure disorder, Other GI: GERD : Renal insuffiency Psych: Depression, Anxiety Musculoskeletal: Osteoporosis - Past Surgical History Past Surgical History: Yes Ortho: Hip replacement Neuro: Other - Present Medications Home Medications: Ambulatory Orders Medication Instructions Recorded Confirmed Aspirin [Aspirin EC] 81 mg PO DAILY 08/24/16 04/22/17 Docusate Sodium 200 mg PO BID 08/24/16 04/22/17 Simvastatin [Zocor] 20 mg PO QPM 08/24/16 04/22/17 lamoTRIgine [LaMICtal] 75 mg PO BID 08/24/16 04/22/17 levETIRAcetam [Levetiracetam] 500 mg PO QPM 08/24/16 04/22/17 Citalopram [CeleXA] 10 mg PO DAILY 03/27/17 04/22/17 traMADol [Ultram] 12.5 mg PO Q4HR PRN 03/27/17 04/22/17 ALPRAZolam [Alprazolam] 1 tab PO DAILY PRN 04/16/17 07/16/17 hydrOXYzine HCl [Hydroxyzine HCl] 2 tab PO QPM 04/16/17 04/22/17 Cholecalciferol (Vitamin D3) 1 cap PO DAILY 04/22/17 04/22/17 [Vitamin D3] Risperidone [Risperidone Odt] 1 tab PO BID 07/16/17 07/16/17 - Allergies Allergies/Adverse Reactions: Allergies Allergy/AdvReac Type Severity Reaction Status Date / Time No Known Drug Allergies Allergy Verified 02/24/18 15:00 - Social History Does the pt smoke?: No Smoking Status: Never smoker Does the pt drink ETOH?: No Does the pt have substance abuse?: No - Immunizations Immunizations are current?: Yes - POLST Patient has POLST: No PD ED PE NORMAL - Vitals Vital signs reviewed: Yes - General General: Other (She is somnolent but arousable, she follows commands in all 4 extremities and she can say her name. She really cannot say why she is here or give me any other useful history.) - HEENT HEENT: PERRL, Other (Remote craniotomy, right parietal region) - Neck Neck: Supple, no meningeal sign, No bony TTP - Cardiac Cardiac: RRR, No murmur - Respiratory Respiratory: No respiratory distress, Clear bilaterally - Abdomen Abdomen: Soft, Non tender - Derm Derm: Normal color, Warm and dry - Extremities Extremities: No edema, No calf tenderness / cord - Neuro Neuro: No motor deficit Eye Opening: To Voice Motor: Obeys Commands Verbal: Confused GCS Score: 13 Results - Vitals Vitals: Vital Signs - 24 hr 07/16/17 07/16/17 14:52 17:09 Temperature 36.3 C L Heart Rate 104 H 118 H Respiratory 12 18 Rate Blood Pressure 111/68 115/75 O2 Saturation 98 97 Oxygen O2 Source Room air - Labs Labs: Laboratory Tests 07/16/17 07/16/17 07/16/17 15:10 15:10 15:10 WBC Cancelled Corrected WBC Cancelled RBC Cancelled Hgb Cancelled Hct Cancelled MCV Cancelled MCH Cancelled MCHC Cancelled RDW Cancelled Plt Count Cancelled MPV Cancelled Neut # Cancelled Lymph # Cancelled [place] # Cancelled Eos # Cancelled Baso # Cancelled Absolute Nucleated RBC Cancelled Total Counted Cancelled Band Neuts % (Manual) Cancelled Reactive Lymphs % (Man) Cancelled Abnorm Lymph % (Manual) Cancelled Metamyelocytes % Cancelled Myelocytes % Cancelled Promyelocytes % Cancelled Blast Cells % Cancelled Plasma Cell % (Manual) Cancelled Other Cells % Cancelled Nucleated RBC % Cancelled Neutrophils # (Manual) Cancelled Lymphocytes # (Manual) Cancelled Monocytes # (Manual) Cancelled Eosinophils # (Manual) Cancelled Basophils # (Manual) Cancelled Nucleated RBCs Cancelled Differential Comment Cancelled Manual Slide Review Cancelled WBC Morphology Cancelled Platelet Estimate Cancelled Platelet Morphology Cancelled RBC Morph Micro Appear Cancelled PT Cancelled INR Cancelled Sodium Cancelled Potassium Cancelled Chloride Cancelled Carbon Dioxide Cancelled Anion Gap Cancelled BUN Cancelled Creatinine Cancelled Estimated GFR (MDRD) Cancelled Glucose Cancelled Lactic Acid Calcium Cancelled Total Bilirubin Cancelled AST Cancelled ALT Cancelled Alkaline Phosphatase Cancelled Total Creatine Kinase CK-MB (CK-2) Troponin I Total Protein Cancelled Albumin Cancelled Globulin Cancelled Albumin/Globulin Ratio Cancelled Lipase Cancelled Urine Color Urine Clarity Urine pH Ur Specific [place] Urine Protein Urine Glucose (UA) Urine Ketones Urine Occult Blood Urine Nitrite Urine Bilirubin Urine Urobilinogen Ur Leukocyte Esterase Urine RBC Urine WBC Ur Epithelial Cells Ur Squamous Epith Cells Urine Bacteria Urine Mucus Ur Microscopic Review Urine Culture Comments Slides for Path Review Cancelled 07/16/17 07/16/17 07/16/17 15:10 16:00 16:00 WBC 5.2 Corrected WBC RBC 2.84 L Hgb 9.2 L Hct 26.6 L MCV 93.9 MCH 32.4 H MCHC 34.5 RDW 12.9 Plt Count 154 MPV 7.3 L Neut # 3.9 Lymph # 0.6 L [place] # 0.5 Eos # 0.1 Baso # 0.0 Absolute Nucleated RBC 0.00 Total Counted Band Neuts % (Manual) Reactive Lymphs % (Man) Abnorm Lymph % (Manual) Metamyelocytes % Myelocytes % Promyelocytes % Blast Cells % Plasma Cell % (Manual) Other Cells % Nucleated RBC % 0.0 Neutrophils # (Manual) Lymphocytes # (Manual) Monocytes # (Manual) Eosinophils # (Manual) Basophils # (Manual) Nucleated RBCs Differential Comment Manual Slide Review WBC Morphology Platelet Estimate Platelet Morphology RBC Morph Micro Appear PT 12.4 INR 1.1 Sodium Potassium Chloride Carbon Dioxide Anion Gap BUN Creatinine Estimated GFR (MDRD) Glucose Lactic Acid Cancelled Calcium Total Bilirubin AST ALT Alkaline Phosphatase Total Creatine Kinase CK-MB (CK-2) Troponin I Total Protein Albumin Globulin Albumin/Globulin Ratio Lipase Urine Color Urine Clarity Urine pH Ur Specific [place] Urine Protein Urine Glucose (UA) Urine Ketones Urine Occult Blood Urine Nitrite Urine Bilirubin Urine Urobilinogen Ur Leukocyte Esterase Urine RBC Urine WBC Ur Epithelial Cells Ur Squamous Epith Cells Urine Bacteria Urine Mucus Ur Microscopic Review Urine Culture Comments Slides for Path Review 07/16/17 07/16/17 07/16/17 16:00 16:00 16:00 WBC Corrected WBC RBC Hgb Hct MCV MCH MCHC RDW Plt Count MPV Neut # Lymph # [place] # Eos # Baso # Absolute Nucleated RBC Total Counted Band Neuts % (Manual) Reactive Lymphs % (Man) Abnorm Lymph % (Manual) Metamyelocytes % Myelocytes % Promyelocytes % Blast Cells % Plasma Cell % (Manual) Other Cells % Nucleated RBC % Neutrophils # (Manual) Lymphocytes # (Manual) Monocytes # (Manual) Eosinophils # (Manual) Basophils # (Manual) Nucleated RBCs Differential Comment Manual Slide Review WBC Morphology Platelet Estimate Platelet Morphology RBC Morph Micro Appear PT INR Sodium 135 Potassium 4.4 Chloride 100 L Carbon Dioxide 25 Anion Gap 10.0 BUN 29 H Creatinine 1.3 H Estimated GFR (MDRD) 42 L Glucose 102 H Lactic Acid 0.7 Calcium 8.6 Total Bilirubin 0.6 AST 24 ALT 20 Alkaline Phosphatase 82 Total Creatine Kinase 105 CK-MB (CK-2) 2.2 Troponin I < 0.04 Total Protein 7.2 Albumin 3.7 Globulin 3.5 Albumin/Globulin Ratio 1.1 Lipase 15 L Urine Color Urine Clarity Urine pH Ur Specific [place] Urine Protein Urine Glucose (UA) Urine Ketones Urine Occult Blood Urine Nitrite Urine Bilirubin Urine Urobilinogen Ur Leukocyte Esterase Urine RBC Urine WBC Ur Epithelial Cells Ur Squamous Epith Cells Urine Bacteria Urine Mucus Ur Microscopic Review Urine Culture Comments Slides for Path Review 07/16/17 16:05 WBC Corrected WBC RBC Hgb Hct MCV MCH MCHC RDW Plt Count MPV Neut # Lymph # [place] # Eos # Baso # Absolute Nucleated RBC Total Counted Band Neuts % (Manual) Reactive Lymphs % (Man) Abnorm Lymph % (Manual) Metamyelocytes % Myelocytes % Promyelocytes % Blast Cells % Plasma Cell % (Manual) Other Cells % Nucleated RBC % Neutrophils # (Manual) Lymphocytes # (Manual) Monocytes # (Manual) Eosinophils # (Manual) Basophils # (Manual) Nucleated RBCs Differential Comment Manual Slide Review WBC Morphology Platelet Estimate Platelet Morphology RBC Morph Micro Appear PT INR Sodium Potassium Chloride Carbon Dioxide Anion Gap BUN Creatinine Estimated GFR (MDRD) Glucose Lactic Acid Calcium Total Bilirubin AST ALT Alkaline Phosphatase Total Creatine Kinase CK-MB (CK-2) Troponin I Total Protein Albumin Globulin Albumin/Globulin Ratio Lipase Urine Color YELLOW Urine Clarity CLEAR Urine pH 7.0 Ur Specific [place] 1.015 Urine Protein NEGATIVE Urine Glucose (UA) NEGATIVE Urine Ketones NEGATIVE Urine Occult Blood MODERATE H Urine Nitrite NEGATIVE Urine Bilirubin NEGATIVE Urine Urobilinogen 0.2 (NORMAL) Ur Leukocyte Esterase NEGATIVE Urine RBC 6-10 H Urine WBC 0-3 Ur Epithelial Cells FEW Renal Tubular Ur Squamous Epith Cells RARE Squamous Urine Bacteria None Seen Urine Mucus Few Strands Ur Microscopic Review INDICATED Urine Culture Comments NOT INDICATED Slides for Path Review PD MEDICAL DECISION MAKING - ED course ED course: 61-year-old woman with history of brain injury and cognitive difficulties [facility] a [facility] having slumped over at the table. She seems almost back to baseline and did come around to a more normal and acute mental status here, still with significant cognitive and memory difficulties. Objectively cannot find much wrong, normal white count urinalysis, no change on head CT or chest x-ray of significance. Departure - Departure Disposition: 01 Home, Self Care Clinical Impression: Altered mental status Qualifiers: Altered mental status type: disorientation Qualified Code(s): R41.0 - Disorientation, unspecified Condition: Stable Record reviewed to determine appropriate education?: Yes Comments: Return if worsening or if new symptoms develop. Next available appointment with her physician.
--- NOTE | 2017-07-16 15:55 | XRAY Report ---
EXAM: CHEST RADIOGRAPHY EXAM DATE: 07/16/2017 03:34 PM. CLINICAL HISTORY: Altered mental status. COMPARISON: 10/04/2016. TECHNIQUE: 2 views. FINDINGS: Upper portion of the chest is obscured due to the patient's chin. Lungs/pleura: Low lung volumes. Lungs are grossly clear. No pleural effusion. No gross pneumothorax. Mediastinum: Heart and mediastinal contours are unremarkable. Other: There is further loss of height of the T12 and L2 vertebral bodies compared to prior examinati on. IMPRESSION: 1. Limited view of a portion of the chest. Visualized portion is normal. 2. Further progression of loss of height of the T12 and L2 vertebral bodies. [facility] Referring Provider Line: [phone] SITE ID: [id number]
--- NOTE | 2017-07-16 15:55 | XRAY Preliminary Report ---
Exam: XR CHEST 2 VIEW X-RAY IMPRESSION: 1. Limited view of a portion of the chest. Visualized portion is normal. 2. Further progression of loss of height of the T12 and L2 vertebral bodies. [facility] SITE ID: [id number]
[2017-07-16 16:14] LABS: BASOPHILS % (AUTO) 0.8 %; EOSINOPHILS # (AUTO) 0.1 10^3/uL (0.0-0.7); EOSINOPHILS % (AUTO) 2.4 %; HGB - HEMOGLOBIN 9.2 g/dL (12.0-16.0); LYMPHOCYTES # (AUTO) 0.6 10^3/uL (1.5-3.5); LYMPHOCYTES % (AUTO) 11.7 %; MEAN CORPUSCULAR HEMOGLOBIN 32.4 pg (27.0-31.0); MEAN CORPUSCULAR HGB CONC 34.5 g/dL (32.0-36.0); MEAN CORPUSCULAR VOLUME 93.9 fL (81.0-99.0); MEAN PLATELET VOLUME 7.3 fL (7.9-10.8); MONOCYTES # (AUTO) 0.5 10^3/uL (0.0-1.0); MONOCYTES % (AUTO) 9.9 %; NEUTROPHILS # (AUTO) 3.9 10^3/uL (1.5-6.6); NEUTROPHILS % (AUTO) 75.2 %; PLT - PLATELET COUNT 154 10^3/uL (130-450); RED BLOOD COUNT 2.84 10^6/uL (4.20-5.40); RED CELL DISTRIBUTION WIDTH 12.9 % (12.0-15.0); WHITE BLOOD COUNT 5.2 x10^3/uL (4.8-10.8)
[2017-07-16 16:20] LABS: INR 1.1 (0.8-1.2); PT - PROTHROMBIN TIME 12.4 secs (9.9-12.6)
[2017-07-16 16:28] LABS: BILIRUBIN,URINE NEGATIVE (NEGATIVE); GLUCOSE, URINE (UA) NEGATIVE (NEGATIVE); KETONES,URINE (UA) NEGATIVE (NEGATIVE); LEUKOCYTE ESTERASE, URINE NEGATIVE (NEGATIVE); NITRITE,URINE NEGATIVE (NEGATIVE); OCCULT BLOOD,URINE MODERATE (NEGATIVE); PROTEIN,URINE NEGATIVE (NEGATIVE); UROBILINOGEN,URINE 0.2 (NORMAL) E.U./dL (NORMAL)
[2017-07-16 16:32] LABS: ALBUMIN 3.7 g/dL (3.2-5.5); ALBUMIN/GLOBULIN RATIO 1.1 (1.0-2.2); BILIRUBIN,TOTAL 0.6 mg/dL (0.2-1.0); CALCIUM 8.6 mg/dL (8.5-10.3); CREATININE 1.3 mg/dL (0.4-1.0); TOTAL PROTEIN 7.2 g/dL (6.7-8.2)
[2017-07-16 16:35] LABS: TROPONIN I < 0.04 ng/mL (<0.49)
[2017-07-16 16:37] LABS: CREATINE KINASE MB 2.2 ng/mL (0.6-6.3)
[2017-07-16 16:55] LABS: CLARITY,URINE CLEAR (CLEAR)
[2017-07-16 16:58] LABS: BACTERIA,URINE None Seen /HPF (None Seen); EPITHELIAL CELLS,UR FEW Renal Tubular /HPF (<= Few); SQUAMOUS EPITHELIAL CELL,UR RARE Squamous (<= Few)
[2017-07-16 16:59] LABS: MUCUS,URINE Few Strands
--- NOTE | 2017-07-16 17:00 | CT Report ---
EXAM: CT HEAD EXAM DATE: 07/16/2017 04:37 PM. CLINICAL HISTORY: Altered mental status. COMPARISON: 04/22/2017. TECHNIQUE: Multiaxial CT images were obtained from the foramen magnum to the vertex. Reformats: Coron al. IV contrast: None. In accordance with CT protocol optimization, one or more of the following dose reduction techniques w ere utilized for this exam: automated exposure control, adjustment of mA and/or KV based on patient s ize, or use of iterative reconstructive technique. FINDINGS: Parenchyma: No intraparenchymal hemorrhage. Stable right parieto-occipital encephalomalacia. No evide nce of mass, midline shift, or CT findings of acute infarction. Quintanilla-white differentiation is distinc t. Stable chronic microangiopathic white matter changes are evident. Extraaxial Spaces: Prominent for age. No subdural or epidural collections identified. Ventricles: The ventricles and cortical sulci are prominent, consistent with age-related tissue loss. Sinuses and orbits: Imaged paranasal sinuses, orbits, and left mastoids show no significant abnormali ty. Stable right mastoid opacification. Bones: Old right parietal craniotomy defect. Other: None. IMPRESSION: Stable age-related cortical atrophic changes and chronic right parieto-occipital abnormal ity, without evidence of acute intracranial abnormality. [facility] Referring Provider Line: [phone] SITE ID: [id number]
[2017-07-16 17:10] VITALS: BP 115/75
== END 2017-07-16 18:30 | disposition home or self-care (01) ==
LOC: EDUNIT# → ED 14:51
DX: R41.0 Disorientation, unspecified (principal); R40.0 Somnolence; F03.90 Unspecified dementia, unspecified severity, without behavioral disturbance, psychotic disturbance, mood disturbance, and anxiety; Z98.890 Other specified postprocedural states; Z86.011 Personal history of benign neoplasm of the brain; Z86.73 Personal history of transient ischemic attack (TIA), and cerebral infarction without residual deficits; Z79.82 Long term (current) use of aspirin
CPT/HCPCS: 36415; 51701; 70450; 71046; 80053; 81001; 81003; 82550; 82553; 83605; 83690; 84484; 85025; 85610; 87040; 87086; 99283; 99284

== ENCOUNTER 2017-07-16 18:36 | Outpatient (CLI) | payer MEDICARE | END 2017-07-16 23:59 | disposition home or self-care (01) | LOC: EMS 18:36 | PROVIDERS: ATTEND Surgery | DX: F03.90 Unspecified dementia, unspecified severity, without behavioral disturbance, psychotic disturbance, mood disturbance, and anxiety (principal); R41.0 Disorientation, unspecified; Z74.01 Bed confinement status | CPT/HCPCS: A0425; A0428 ==

== ENCOUNTER 2017-07-17 13:10 | Outpatient (CLI) | payer MEDICARE | END 2017-07-17 13:11 | disposition critical access hospital (66) | LOC: EMS 13:10 | PROVIDERS: ATTEND Surgery | DX: R13.10 Dysphagia, unspecified (principal) | CPT/HCPCS: A0425; A0429 ==

== ENCOUNTER 2017-07-17 13:20 | Emergency (ER) | payer MEDICARE ==
--- NOTE | 2017-07-17 13:40 | ED Physician Documentation ---
PD HPI NVD - Stated complaint Stated Complaint: NOT ABLE TO DRINK - Chief complaint Chief Complaint: General - History obtained from History obtained from: Patient, EMS, Caregiver - History of Present Illness Timing - onset: Today Timing - duration: Days (1) Timing - details: Gradual onset (Reportedly the patient was not wanting to drink or eat at the care facility. When she did try to swallow she appeared uncomfortable. She been here in the ER yesterday having slumped over during a meal. She had tests and evaluation here which did not show any acute abnormal process. She was returned back to her care facility and as above reportedly was not wanting to drink fluids today. The caregiver's report to EMS that the patient was also not quite acting her normal self. She does have history of dementia with less interaction. She is however normally ambulatory on her own. She was not wanting to get up and around.) Associated symptoms: No: Fever, Abdominal pain Recently seen: Emergency Dept (Yesterday after a syncopal type episode. Testing did not show any acute abnormality.) Review of Systems Unable to obtain: Dementia Constitutional: denies: Fever Cardiac: denies: Chest pain / pressure GI: reports: Other (not wanting to drink fluids, and seemed uncomfortable when she did.). denies: Abdominal Pain, Vomiting, Diarrhea Neurologic: denies: Focal weakness, Numbness PD PAST MEDICAL HISTORY - Past Medical History Cardiovascular: High cholesterol Neuro: Dementia, CVA, Seizure disorder, Other GI: GERD : Renal insuffiency Psych: Depression, Anxiety Musculoskeletal: Osteoporosis - Past Surgical History Past Surgical History: Yes Ortho: Hip replacement Neuro: Other - Present Medications Home Medications: Ambulatory Orders Medication Instructions Recorded Confirmed Aspirin [Aspirin EC] 81 mg PO DAILY 08/24/16 04/22/17 Docusate Sodium 200 mg PO BID 08/24/16 04/22/17 Simvastatin [Zocor] 20 mg PO QPM 08/24/16 04/22/17 lamoTRIgine [LaMICtal] 75 mg PO BID 08/24/16 04/22/17 levETIRAcetam [Levetiracetam] 500 mg PO QPM 08/24/16 04/22/17 Citalopram [CeleXA] 10 mg PO DAILY 03/27/17 04/22/17 traMADol [Ultram] 12.5 mg PO Q4HR PRN 03/27/17 04/22/17 ALPRAZolam [Alprazolam] 1 tab PO DAILY PRN 04/16/17 07/16/17 hydrOXYzine HCl [Hydroxyzine HCl] 2 tab PO QPM 04/16/17 04/22/17 Cholecalciferol (Vitamin D3) 1 cap PO DAILY 04/22/17 04/22/17 [Vitamin D3] Risperidone [Risperidone Odt] 1 tab PO BID 07/16/17 07/16/17 - Allergies Allergies/Adverse Reactions: Allergies Allergy/AdvReac Type Severity Reaction Status Date / Time No Known Drug Allergies Allergy Verified 07/16/17 15:00 - Social History Does the pt smoke?: No Smoking Status: Never smoker Does the pt drink ETOH?: No Does the pt have substance abuse?: No - Immunizations Immunizations are current?: Yes - POLST Patient has POLST: No PD ED PE NORMAL - Vitals Vital signs reviewed: Yes - General General: No acute distress, Well developed/nourished, Other (alert and answers questions simply but coherently. ) - HEENT HEENT: Atraumatic, Pharynx benign, Other (She did swallow water here at request. There was perhaps a slight appearance of discomfort as she did. No spitting up. 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 ) Eye Opening: Spontaneous Motor: Obeys Commands Verbal: Oriented GCS Score: 15 - Psych Psych: No: Normal affect (somewhat flat) Results - Vitals Vitals: Vital Signs - 24 hr 07/17/17 07/17/17 13:28 16:02 Temperature 36.9 C 37.0 C Heart Rate 109 H 98 Respiratory 16 14 Rate Blood Pressure 125/86 H 130/92 H O2 Saturation 100 99 Oxygen O2 Source Room air - Rads (name of study) abd xray with oral contrast Radiology: Prelim report reviewed (good flow of contrast without any esophageal blockage. ) PD MEDICAL DECISION MAKING - ED course Complexity details: considered differential (She is following commands, is appearing comfortable here. Taking water okay. Stands bedside and walks a little okay. ) Departure - Departure Disposition: 01 Home, Self Care Clinical Impression: Poor appetite Altered mental status Qualifiers: Altered mental status type: unspecified Qualified Code(s): R41.82 - Altered mental status, unspecified Condition: Stable Record reviewed to determine appropriate education?: Yes Follow-Up: Sofia Mccormack MD [Primary Care Provider] - Comments: Carlota drink water for us here readily. We did a dye study which showed contrast I go down the esophagus and into the stomach and intestine readily so no signs of blockage or such. She seems to be interacting reasonably here. She had a fair amount of tests done yesterday so I am not sure what ahead with it right now. See how she does over the next day or two. Forms: Activity restrictions
--- NOTE | 2017-07-17 15:32 | XRAY Report ---
EXAM: ABDOMEN RADIOGRAPHY EXAM DATE: 07/17/2017 02:50 PM. CLINICAL HISTORY: Reluctant to swallow; consider esophageal blockage UPRIGHT PLEASE. COMPARISON: None. TECHNIQUE: 1 view. FINDINGS: Pelvis excluded from the field of view. Bowel Gas Pattern: Within normal limits. No dilated loops. Contrast in stomach and small bowel. Other: Clear lungs. Normal heart size. No gaseous distention of esophagus. IMPRESSION: Nonobstructive bowel gas pattern. [facility] Referring Provider Line: [phone] SITE ID: [id number]
[2017-07-17 17:59] VITALS: BP 128/88
== END 2017-07-17 17:00 | disposition home or self-care (01) ==
LOC: EDUNIT# → ED 13:20
DX: R63.0 Anorexia (principal); R41.82 Altered mental status, unspecified; F03.90 Unspecified dementia, unspecified severity, without behavioral disturbance, psychotic disturbance, mood disturbance, and anxiety; Z86.73 Personal history of transient ischemic attack (TIA), and cerebral infarction without residual deficits; E78.00 Pure hypercholesterolemia, unspecified; Z96.649 Presence of unspecified artificial hip joint
CPT/HCPCS: 74018; 99283; 99284

== ENCOUNTER 2017-07-18 09:43 | Outpatient (CLI) | payer MEDICARE | END 2017-07-18 09:44 | disposition critical access hospital (66) | LOC: EMS 09:43 | PROVIDERS: ATTEND Surgery | DX: R06.00 Dyspnea, unspecified (principal); R19.5 Other fecal abnormalities | CPT/HCPCS: A0425; A0429 ==

== ENCOUNTER 2017-07-18 09:57 | Emergency (ER) | payer MEDICARE ==
--- NOTE | 2017-07-18 10:12 | ED Physician Documentation ---
History of Present Illness - Stated complaint Stated Complaint: SOA - Chief complaint Chief Complaint: Resp - History obtained from History obtained from: Patient, EMS - History of Present Illness Timing: How many days ago (3) - Additonal information Additional information: 61-year-old female with a history of traumatic brain injury on top of a prior insult related to treatment of a brain tumor has again today become less responsive than her normal has been evaluated in the emergency department 2 days ago for syncopal episode. And change in mental status. She has had continued change in mental status and was seen in the emergency department again and evaluated yesterday. Her problem yesterday was that she could not swallow well and she was able to swallow here without difficulty. Again without specific finding. Today she is brought in by medics with the chief complaint that something is wrong. Her care givers are able to provide some history that she is usually able to ambulate with a walker and is very talkative and yells a lot. Today they find her lethargic and unable to perform basic commands or hold a conversation.The patient arrives here and is listing to the right and unable to give much history. Review of Systems Constitutional: denies: Fever Eyes: denies: Decreased vision Ears: denies: Ear pain Nose: denies: Congestion Throat: denies: Sore throat Cardiac: denies: Chest pain / pressure, Palpitations Respiratory: denies: Dyspnea, Cough GI: denies: Abdominal Pain, Nausea, Vomiting : denies: Dysuria, Frequency Skin: denies: Rash Musculoskeletal: denies: Neck pain, Back pain, Extremity pain PD PAST MEDICAL HISTORY - Past Medical History Cardiovascular: High cholesterol Neuro: Dementia, CVA, Seizure disorder, Other GI: GERD : Renal insuffiency Psych: Depression, Anxiety Musculoskeletal: Osteoporosis - Past Surgical History Past Surgical History: Yes Ortho: Hip replacement Neuro: Other - Present Medications Home Medications: Ambulatory Orders Medication Instructions Recorded Confirmed Aspirin [Aspirin EC] 81 mg PO DAILY 08/24/16 07/18/17 Docusate Sodium 200 mg PO BID 08/24/16 07/18/17 Simvastatin [Zocor] 20 mg PO QPM 08/24/16 07/18/17 lamoTRIgine [LaMICtal] 75 mg PO BID 08/24/16 07/18/17 levETIRAcetam [Levetiracetam] 500 mg PO QPM 08/24/16 07/18/17 Citalopram [CeleXA] 10 mg PO DAILY 03/27/17 07/18/17 traMADol [Ultram] 12.5 mg PO Q4HR PRN 03/27/17 07/18/17 ALPRAZolam [Alprazolam] 1 tab PO DAILY PRN 04/16/17 07/18/17 hydrOXYzine HCl [Hydroxyzine HCl] 2 tab PO QPM 04/16/17 07/18/17 Cholecalciferol (Vitamin D3) 1 cap PO DAILY 04/22/17 07/18/17 [Vitamin D3] Risperidone [Risperidone Odt] 1 tab PO BID 07/16/17 07/18/17 - Allergies Allergies/Adverse Reactions: Allergies Allergy/AdvReac Type Severity Reaction Status Date / Time No Known Drug Allergies Allergy Verified 07/16/17 15:00 - Social History Does the pt smoke?: No Smoking Status: Never smoker Does the pt drink ETOH?: No Does the pt have substance abuse?: No - Immunizations Immunizations are current?: Yes - POLST Patient has POLST: No PD ED PE NORMAL - Vitals Vital signs reviewed: Yes (tachy low grade temp and hypertension ) - General General: No acute distress, Well developed/nourished - HEENT HEENT: Atraumatic, PERRL, EOMI, Ears normal, Other (dry mucous membranes) - Neck Neck: Supple, no meningeal sign, No bony TTP - Cardiac Cardiac: No murmur, Other (tachy ) - Respiratory Respiratory: No respiratory distress, Clear bilaterally - Abdomen Abdomen: Soft, Non tender - Back Back: No CVA TTP, No spinal TTP - Derm Derm: Normal color, Warm and dry, No rash - Extremities Extremities: No deformity, No edema - Neuro Neuro: No motor deficit, No sensory deficit Eye Opening: Spontaneous Motor: Obeys Commands Verbal: Confused GCS Score: 14 - Psych Psych: Normal mood, Normal affect Results - Vitals Vitals: Vital Signs - 24 hr 07/18/17 07/18/17 07/18/17 10:06 11:57 13:27 Temperature 37.7 C H 38.3 C H 37.2 C Heart Rate 110 H 117 H Respiratory 20 22 Rate Blood Pressure 123/87 H 127/74 O2 Saturation 97 98 Oxygen O2 Source Room air - Labs Labs: Laboratory Tests 07/18/17 07/18/17 07/18/17 10:30 10:30 12:32 WBC 10.4 RBC 2.93 L Hgb 9.7 L Hct 27.4 L MCV 93.5 MCH 33.0 H MCHC 35.3 RDW 13.0 Plt Count 147 MPV 7.4 L Neut # 8.4 H Lymph # 0.9 L Desha # 0.9 Eos # 0.1 Baso # 0.1 Absolute Nucleated RBC 0.00 Nucleated RBC % 0.0 Sodium 134 L Potassium 3.9 Chloride 98 L Carbon Dioxide 25 Anion Gap 11.0 BUN 31 H Creatinine 1.4 H Estimated GFR (MDRD) 38 L Glucose 121 H Calcium 8.8 Total Bilirubin 0.6 AST 30 ALT 20 Alkaline Phosphatase 75 Total Protein 7.7 Albumin 3.8 Globulin 3.9 Albumin/Globulin Ratio 1.0 Lipase 19 L Urine Color COLORLESS Urine Clarity CLEAR Urine pH 7.5 Ur Specific [place] 1.010 Urine Protein NEGATIVE Urine Glucose (UA) NEGATIVE Urine Ketones NEGATIVE Urine Occult Blood SMALL H Urine Nitrite NEGATIVE Urine Bilirubin NEGATIVE Urine Urobilinogen 0.2 (NORMAL) Ur Leukocyte Esterase NEGATIVE Urine RBC 0-5 Urine WBC 0-3 Ur Epithelial Cells RARE Transitional Ur Squamous Epith Cells NONE SEEN Urine Bacteria None Seen Ur Microscopic Review INDICATED Urine Culture Comments NOT INDICATED Procedures - IVC sono (time) 1005 Bedside IVC sono: IVC measures (cm) (0.83), IVC collapsed c insp (cm) (complete) , Dehydration (est 2 liter deficit) PD MEDICAL DECISION MAKING - ED course Complexity details: reviewed old records, reviewed results, re-evaluated patient , considered differential, d/w patient ED course: 61-year-old female with brain injury is found to be dehydrated on interrogation of the inferior vena cava she is estimated be 2 L deficit. She has had visits to the emergency department the past 2 days in a row with vague complaints of changes. She has returned to baseline in the ED and I suspect this may be siezure with post ictal period. I considered admission to evaluate for CVA but the patient improved and wanted to go home. I do not think this is TIA. I was able to perform a modified stroke scale and I did not find any lateralizing findings. We did not find other findings of treatable illness and a specimen for a Keppra level is sent to the reference lab. She wants to go home and I am diagnosing her with a seizure. She has also been diagnosed with dehydration and this has been treated here in the emergency department Departure - Departure Disposition: 01 Home, Self Care Clinical Impression: Seizure disorder, Dehydration Altered mental status Qualifiers: Altered mental status type: transient alteration of awareness Qualified Code(s) : R40.4 - Transient alteration of awareness Instructions: ED Seizure Recurrent, ED Dehydration Follow-Up: Sofia Mccormack MD [Primary Care Provider] -
[2017-07-18] MEDS ORDERED: SODIUM CHLORIDE 0.9% 1,000 ML IV ONE ×2 (10:29→11:59)
[2017-07-18 10:39] LABS: BASOPHILS # (AUTO) 0.1 10^3/uL (0.0-0.1); BASOPHILS % (AUTO) 0.5 %; EOSINOPHILS # (AUTO) 0.1 10^3/uL (0.0-0.7); EOSINOPHILS % (AUTO) 1.1 %; HGB - HEMOGLOBIN 9.7 g/dL (12.0-16.0); LYMPHOCYTES # (AUTO) 0.9 10^3/uL (1.5-3.5); MEAN CORPUSCULAR HGB CONC 35.3 g/dL (32.0-36.0); MEAN CORPUSCULAR VOLUME 93.5 fL (81.0-99.0); MEAN PLATELET VOLUME 7.4 fL (7.9-10.8); MONOCYTES # (AUTO) 0.9 10^3/uL (0.0-1.0); MONOCYTES % (AUTO) 8.8 %; NEUTROPHILS # (AUTO) 8.4 10^3/uL (1.5-6.6); NEUTROPHILS % (AUTO) 80.6 %; PLT - PLATELET COUNT 147 10^3/uL (130-450); RED BLOOD COUNT 2.93 10^6/uL (4.20-5.40); WHITE BLOOD COUNT 10.4 x10^3/uL (4.8-10.8)
[2017-07-18 10:53] LABS: ALBUMIN 3.8 g/dL (3.2-5.5); BILIRUBIN,TOTAL 0.6 mg/dL (0.2-1.0); CALCIUM 8.8 mg/dL (8.5-10.3); CREATININE 1.4 mg/dL (0.4-1.0); TOTAL PROTEIN 7.7 g/dL (6.7-8.2)
[2017-07-18] MEDS ORDERED: ACETAMINOPHEN 325 MG TABLET PO STA (11:59)
[2017-07-18 13:08] LABS: BILIRUBIN,URINE NEGATIVE (NEGATIVE); GLUCOSE, URINE (UA) NEGATIVE (NEGATIVE); KETONES,URINE (UA) NEGATIVE (NEGATIVE); LEUKOCYTE ESTERASE, URINE NEGATIVE (NEGATIVE); NITRITE,URINE NEGATIVE (NEGATIVE); OCCULT BLOOD,URINE SMALL (NEGATIVE); PH,URINE 7.5 PH (5.0-7.5); PROTEIN,URINE NEGATIVE (NEGATIVE); UROBILINOGEN,URINE 0.2 (NORMAL) E.U./dL (NORMAL)
[2017-07-18 13:10] LABS: CLARITY,URINE CLEAR (CLEAR)
[2017-07-18 13:37] LABS: BACTERIA,URINE None Seen /HPF (None Seen); EPITHELIAL CELLS,UR RARE Transitional /HPF (<= Few); RBC,URINE 0-5 /HPF (0-5); SQUAMOUS EPITHELIAL CELL,UR NONE SEEN (<= Few)
[2017-07-18 16:35] VITALS: BP 111/66
== END 2017-07-18 16:34 | disposition home or self-care (01) ==
LOC: EDUNIT# → ED 09:57
DX: G40.909 Epilepsy, unspecified, not intractable, without status epilepticus (principal); E86.0 Dehydration; R40.4 Transient alteration of awareness; E78.00 Pure hypercholesterolemia, unspecified; F03.90 Unspecified dementia, unspecified severity, without behavioral disturbance, psychotic disturbance, mood disturbance, and anxiety; Z79.82 Long term (current) use of aspirin; Z96.649 Presence of unspecified artificial hip joint; Z86.73 Personal history of transient ischemic attack (TIA), and cerebral infarction without residual deficits
CPT/HCPCS: 36415; 51701; 80053; 80177; 81001; 83690; 85025; 96360; 96361; 99284; A9270; 81003; 87086

== ENCOUNTER 2017-07-30 23:58 | Outpatient (CLI) | payer MEDICARE | END 2017-07-30 23:59 | disposition EMS.NT | LOC: EMS 23:58 | PROVIDERS: ATTEND Surgery | DX: S00.00XA Unspecified superficial injury of scalp, initial encounter (principal); W18.39XA Other fall on same level, initial encounter; Y92.122 Bedroom in nursing home as the place of occurrence of the external cause ==

== ENCOUNTER 2017-12-06 12:44 | Outpatient (CLI) | payer MEDICARE, MEDICAID ==
--- NOTE | 2017-12-06 17:13 | MRI Report ---
Procedure Date: 12/06/2017 Accession Number: [id number] / [id number] Procedure: MRI - Brain W/O CPT Code: FULL RESULT: EXAM: MRI BRAIN WITHOUT CONTRAST EXAM DATE: 12/06/2017 01:55 PM. CLINICAL HISTORY: 62-year-old woman with seizure disorder and confusion and agitation. COMPARISON: Noncontrast head CT on 07/16/2017. TECHNIQUE: Multiplanar, multisequence T1-weighted and fluid-sensitive MR sequences of the brain were performed. Sequences optimized for routine evaluation. Other: None. IV Contrast: None. FINDINGS: Parenchyma: No evidence of acute infarct on diffusion weighted sequence. Encephalomalacia and post surgical changes are present in the right occipital and parietal lobes, grossly unchanged compared to the 07/16/2017 CT. Extensive FLAIR hyperintensity with ill-defined margins is present in the deep cerebral white matter, greatest in the posterior right cerebrum. Appearance is suggestive of treatment-related changes, but may also reflect sequelae of chronic small vessel ischemic disease at least in part. FLAIR hyperintensity is also present in the subcortical white matter of the temporal poles bilaterally. Susceptibility weighted sequence demonstrates several scattered remote micro-hemorrhages in the posterior cerebrum bilaterally, right occipital post surgical changes, brainstem, and right cerebellar hemisphere. Cerebral and, especially, cerebellar volume loss is greater than expected for age but similar to the prior CT. It exam by: Small in size bilaterally, especially on the left. Internal architecture is not well demonstrated bilaterally. Signal intensity is grossly symmetric, normal or slightly elevated bilaterally. Pituitary: Small in size but otherwise unremarkable. Ventricles and Extra-axial Spaces: Ventricles are stable in size and configuration compared to the prior CT. Extra-axial spaces are unremarkable. Orbits: Unremarkable. Sinuses: The paranasal sinuses are clear. There is a right mastoid effusion. Major Vascular Flow Voids: Intact. IMPRESSION: 1. No acute intracranial abnormality. Specifically, no evidence of acute infarct or hemorrhage. 2. Encephalomalacia and post surgical changes are present in the right occipital and parietal lobes, as seen on the 07/16/2017 CT. Adjacent FLAIR signal abnormality is also suggestive of treatment-related changes, more apparent on MRI. If there is history of malignancy, consider postcontrast MRI to evaluate for underlying recurrent disease. 3. Hippocampi are small in size bilaterally, but especially small on the left. Signal intensity is symmetric and possibly mildly elevated. Findings are nonspecific, but possibly reflecting mesial temporal sclerosis on the left or bilaterally. 4. Signal abnormality in the subcortical white matter of the temporal poles is nonspecific. Differential diagnosis includes prior trauma, treatment-related changes, or possibly CADASIL. RADIA
== END 2017-12-06 12:45 | disposition home or self-care (01) ==
LOC: DI 12:44
PROVIDERS: ATTEND Psychiatry & Neurology Neurology
DX: R41.0 Disorientation, unspecified (principal); G93.89 Other specified disorders of brain; H53.462 Homonymous bilateral field defects, left side; G40.909 Epilepsy, unspecified, not intractable, without status epilepticus
CPT/HCPCS: 70551

== ENCOUNTER 2018-04-13 10:44 | Outpatient (CLI) | payer MEDICARE, MEDICAID | END 2018-04-13 10:45 | disposition critical access hospital (66) | LOC: EMS 10:44 | PROVIDERS: ATTEND Surgery | DX: R46.4 Slowness and poor responsiveness (principal); R09.89 Other specified symptoms and signs involving the circulatory and respiratory systems; R50.9 Fever, unspecified; R11.0 Nausea | CPT/HCPCS: A0425; A0427 ==

== ENCOUNTER 2018-04-13 10:59 | Inpatient (IN) | payer MEDICARE, MEDICAID ==
--- NOTE | 2018-04-13 11:12 | ED Physician Documentation ---
History of Present Illness - Stated complaint Stated Complaint: ALTERED - Chief complaint Chief Complaint: Abd Pain - Additonal information Additional information: hx from EMS and EMR 62 female per POLST DNR limited - NO INTUBATION or mechanical ventilation BIBA after she was found unresponsive covered in vomit with labored breathing at her assisted living facility no reported injury febrile and hypoxic per EMS per EMS POA has been contacted and is en route per EMR pmhx ins brain tumor crani TBI cerebellar ataxia seizures falls anemia and renal insuff Review of Systems Unable to obtain: Unresponsive PD PAST MEDICAL HISTORY - Past Medical History Cardiovascular: High cholesterol GI: GERD : Renal insuffiency Psych: Depression, Anxiety Musculoskeletal: Osteoporosis - Past Surgical History Past Surgical History: Yes Ortho: Hip replacement Neuro: Other - Present Medications Home Medications: Ambulatory Orders Medication Instructions Recorded Confirmed Aspirin [Aspirin EC] 81 mg PO DAILY 08/24/16 07/18/17 Docusate Sodium 200 mg PO BID 08/24/16 07/18/17 Simvastatin [Zocor] 20 mg PO QPM 08/24/16 07/18/17 lamoTRIgine [LaMICtal] 75 mg PO BID 08/24/16 04/13/18 levETIRAcetam [Levetiracetam] 500 mg PO QPM 08/24/16 07/18/17 Citalopram [CeleXA] 10 mg PO DAILY 03/27/17 04/13/18 traMADol [Ultram] 12.5 mg PO Q4HR PRN 03/27/17 07/18/17 ALPRAZolam [Alprazolam] 1 tab PO DAILY PRN 04/16/17 07/18/17 hydrOXYzine HCl [Hydroxyzine HCl] 2 tab PO QPM 04/16/17 07/18/17 Cholecalciferol (Vitamin D3) 1 cap PO DAILY 04/22/17 07/18/17 [Vitamin D3] Risperidone [Risperidone Odt] 1 tab PO BID 07/16/17 07/18/17 - Allergies Allergies/Adverse Reactions: Allergies Allergy/AdvReac Type Severity Reaction Status Date / Time No Known Drug Allergies Allergy Verified 04/13/18 11:10 - Social History Does the pt smoke?: No Smoking Status: Never smoker Does the pt drink ETOH?: No Does the pt have substance abuse?: No - Immunizations Immunizations are current?: Yes - POLST Patient has POLST: No PD ED PE NORMAL - Vitals Vital signs reviewed: Yes (febrile tachy tachypneic hypoxic req NRB) - General General: No: Alert and oriented X 3 (unresponsive to voice and touch) - HEENT HEENT: Other (pupils 3 and minimally responsive) - Cardiac Cardiac: RRR (tachy) - Respiratory Respiratory: Other (ronchi ryann) - Abdomen Abdomen: Soft, Non tender - Neuro Neuro: No: Alert and oriented X 3 Results - Vitals Vitals: Vital Signs - 24 hr 04/13/18 04/13/18 04/13/18 11:01 11:09 11:30 Temperature 38.1 C H Heart Rate 136 H 134 H 131 H Respiratory 38 H 33 H Rate Blood Pressure 126/83 H 122/77 O2 Saturation 95 95 04/13/18 04/13/18 04/13/18 12:00 13:00 13:24 Temperature Heart Rate 127 H 128 H 95 Respiratory 32 H 32 H Rate Blood Pressure 108/71 116/76 O2 Saturation 94 94 04/13/18 04/13/18 14:00 14:30 Temperature Heart Rate 126 H 124 H Respiratory 33 H 30 H Rate Blood Pressure 106/71 108/71 O2 Saturation 95 96 Oxygen O2 Source Oxymask - EKG (time done) 1447 Rate: Rate (enter#) (125) Rhythm: Sinus tachycardia Ischemia: Non specific changes - Labs Labs: Laboratory Tests 04/13/18 04/13/18 04/13/18 11:21 11:23 11:23 WBC 4.3 L RBC 2.75 L Hgb 9.2 L Hct 25.9 L MCV 94.0 MCH 33.4 H MCHC 35.5 RDW 12.5 Plt Count 149 MPV 7.4 L Neut # (Auto) Not Reportable Lymph # (Auto) Not Reportable [place] # (Auto) Not Reportable Eos # (Auto) Not Reportable Baso # (Auto) Not Reportable Absolute Nucleated RBC Not Reportable Total Counted 100 Band Neuts % (Manual) 9 Abnorm Lymph % (Manual) 0 Nucleated RBC % Not Reportable Neutrophils # (Manual) 3.0 Lymphocytes # (Manual) 0.7 L Monocytes # (Manual) 0.6 Eosinophils # (Manual) 0.0 Basophils # (Manual) 0.0 Differential Comment MANUAL DIFFERENTIAL Manual Slide Review Indicated Platelet Estimate NORMAL (130-450,000) Platelet Morphology NORMAL APPEARANCE RBC Morph Micro Appear 1+ POLYCHROMASIA Sodium 134 L Potassium 3.4 L Chloride 103 Carbon Dioxide 21 Anion Gap 10.0 BUN 41 H Creatinine 2.3 H Estimated GFR (MDRD) 21 L Glucose 112 H Lactic Acid Calcium 8.0 L Troponin I Urine Color YELLOW Urine Clarity SL. CLOUDY Urine pH 5.5 Ur Specific [place] 1.025 Urine Protein 100 H Urine Glucose (UA) NEGATIVE Urine Ketones 15 H Urine Occult Blood LARGE H Urine Nitrite NEGATIVE Urine Bilirubin NEGATIVE Urine Urobilinogen 0.2 (NORMAL) Ur Leukocyte Esterase NEGATIVE Urine RBC 6-10 H Urine WBC 4-5 Ur Squamous Epith Cells RARE Squamous Amorphous Sediment Few Urine Bacteria Few Urine Casts 11-25 Cellular Casts Ur Microscopic Review INDICATED Urine Culture Comments NOT INDICATED 04/13/18 04/13/18 11:23 11:23 WBC RBC Hgb Hct MCV MCH MCHC RDW Plt Count MPV Neut # (Auto) Lymph # (Auto) [place] # (Auto) Eos # (Auto) Baso # (Auto) Absolute Nucleated RBC Total Counted Band Neuts % (Manual) Abnorm Lymph % (Manual) Nucleated RBC % Neutrophils # (Manual) Lymphocytes # (Manual) Monocytes # (Manual) Eosinophils # (Manual) Basophils # (Manual) Differential Comment Manual Slide Review Platelet Estimate Platelet Morphology RBC Morph Micro Appear Sodium Potassium Chloride Carbon Dioxide Anion Gap BUN Creatinine Estimated GFR (MDRD) Glucose Lactic Acid 1.6 Calcium Troponin I 0.28 Urine Color Urine Clarity Urine pH Ur Specific [place] Urine Protein Urine Glucose (UA) Urine Ketones Urine Occult Blood Urine Nitrite Urine Bilirubin Urine Urobilinogen Ur Leukocyte Esterase Urine RBC Urine WBC Ur Squamous Epith Cells Amorphous Sediment Urine Bacteria Urine Casts Ur Microscopic Review Urine Culture Comments - Rads (name of study) CTH Radiology: See rad report (no acute process, no ICH, chronic changes, enecephlomalacia, mastoid effusion, sinus dz) CXR Radiology: See rad report (bilateral hilar opacities and patchy airspace dz) PD MEDICAL DECISION MAKING - ED course ED course: severe AMS of unclear etiology with subsequent aspiration pna nd hypoxia / respp failure placed pt on BiPAP and gave zosyn which were OK per POLST pending POA arrival POA arrived we spoke at length confirmed do not intubate deferred ABGs etc and will not change tx plan at this point POA notes pt has been declining since Tuesday gradually less responsive, some abn motor to R arm then catastrophically worse overnight we discussed whether to pursure head CT - would not want surgery if ICH or tumor found - but agreed that if would help know what caused the AMS would be beneficial so proceeded with that after ab and fluid and a few hr of BiPAP pt is improving still not responsive but less labored resp effort, appear peaceful weaned off BiPAP to oxy mask at 35% spoke to hospitalist at 1420 Departure - Departure Disposition: 66 [facility] DC/Xfer Clinical Impression: Hypoxia, Renal insufficiency Respiratory failure Qualifiers: Chronicity: acute Respiratory failure complication: hypoxia Qualified Code(s): J96.01 - Acute respiratory failure with hypoxia Altered mental state Qualifiers: Altered mental status type: unspecified Qualified Code(s): R41.82 - Altered mental status, unspecified Anemia Qualifiers: Anemia type: unspecified type Qualified Code(s): D64.9 - Anemia, unspecified Hematuria Qualifiers: Hematuria type: unspecified type Qualified Code(s): R31.9 - Hematuria, unspecified
[2018-04-13] MEDS ORDERED: PIPERACILLIN/TAZOBACTAM 3.375 GM in SODIUM CHLORIDE 0.9% MINIBAG 100 ML IV STA (11:14)
[2018-04-13 11:38] LABS: GLUCOSE, URINE (UA) NEGATIVE (NEGATIVE); KETONES,URINE (UA) 15 mg/dL (NEGATIVE); LEUKOCYTE ESTERASE, URINE NEGATIVE (NEGATIVE); NITRITE,URINE NEGATIVE (NEGATIVE); OCCULT BLOOD,URINE LARGE (NEGATIVE); PH,URINE 5.5 PH (5.0-7.5); PROTEIN,URINE 100 mg/dL (NEGATIVE); UROBILINOGEN,URINE 0.2 (NORMAL) E.U./dL (NORMAL)
[2018-04-13 11:39] LABS: BASOPHILS % (AUTO) 0.2 %; HGB - HEMOGLOBIN 9.2 g/dL (12.0-16.0); LYMPHOCYTES % (AUTO) 15.4 %; MEAN CORPUSCULAR HEMOGLOBIN 33.4 pg (27.0-31.0); MEAN CORPUSCULAR HGB CONC 35.5 g/dL (32.0-36.0); MEAN PLATELET VOLUME 7.4 fL (7.9-10.8); MONOCYTES % (AUTO) 9.2 %; NEUTROPHILS % (AUTO) 75.2 %; PLT - PLATELET COUNT 149 10^3/uL (130-450); RED BLOOD COUNT 2.75 10^6/uL (4.20-5.40); RED CELL DISTRIBUTION WIDTH 12.5 % (12.0-15.0); WHITE BLOOD COUNT 4.3 x10^3/uL (4.8-10.8)
[2018-04-13 11:41] LABS: CLARITY,URINE SL. CLOUDY (CLEAR)
[2018-04-13 11:44] LABS: BILIRUBIN,URINE NEGATIVE (NEGATIVE); ICTOTEST,URINE NEGATIVE
[2018-04-13 11:45] LABS: CREATININE 2.3 mg/dL (0.4-1.0)
[2018-04-13 11:49] LABS: AMORPHOUS SEDIMENT,UR Few /LPF; BACTERIA,URINE Few /HPF (None Seen); SQUAMOUS EPITHELIAL CELL,UR RARE Squamous (<= Few)
[2018-04-13 12:04] LABS: ABNORMAL LYMPHS % (MANUAL) 0 %
[2018-04-13 12:19] LABS: BAND NEUTROPHILS % (MANUAL) 9 %; BASOPHILS % (MANUAL) 1 %; LYMPHOCYTES # (MANUAL) 0.7 10^3/uL (1.5-3.5); LYMPHOCYTES % (MANUAL) 16 %; MONOCYTES # (MANUAL) 0.6 10^3/uL (0.0-1.0); NEUTROPHILS % (MANUAL) 60 %
[2018-04-13 12:20] LABS: DIFFERENTIAL COMMENT MANUAL DIFFERENTIAL; PLATELET ESTIMATE, MANUAL NORMAL (130-450,000) (NORMAL); PLATELET MORPHOLOGY NORMAL APPEARANCE (NORMAL)
--- NOTE | 2018-04-13 12:23 | XRAY Report ---
Reason: hypoxic suspect aspiration Procedure Date: 04/13/2018 Accession Number: [id number] / [id number] Procedure: XR - Chest 1 View X-Ray CPT Code: 08659 FULL RESULT: EXAM: CHEST RADIOGRAPHY EXAM DATE: 04/13/2018 11:39 AM. CLINICAL HISTORY: Hypoxic; suspect aspiration. COMPARISON: CHEST 2 VIEW 07/16/2017 3:21 PM BRAIN W/O 12/06/2017 1:06 PM. TECHNIQUE: 1 view. FINDINGS: Lungs/Pleura: Abnormal bilateral perihilar opacities. Small amount of opacity seen left apex as well. Mild blunting of the right apex. Mediastinum: Within exam limitations, the cardiomediastinal contour is normal. Other: None. IMPRESSION: Bilateral abnormal hilar opacities, new since the 07/16/2017 study. Some patchy airspace disease seen left upper lobe. Differential diagnosis includes perihilar edema, infection, or tumor. RADIA
[2018-04-13] MEDS ORDERED: ACETAMINOPHEN 650 MG SUPP PR STA (13:36)
--- NOTE | 2018-04-13 13:40 | CT Report ---
Reason: AMS Procedure Date: 04/13/2018 Accession Number: [id number] / [id number] Procedure: CT - Head W/O CPT Code: FULL RESULT: EXAM: CT HEAD EXAM DATE: 04/13/2018 01:29 PM. CLINICAL HISTORY: Altered mental status. COMPARISON: 07/16/2017 CT head. 12/06/2017 MRI of the brain. TECHNIQUE: Multiaxial CT images were obtained from the foramen magnum to the vertex. Reformats: Sagittal and coronal. IV contrast: None. In accordance with CT protocol optimization, one or more of the following dose reduction techniques were utilized for this exam: automated exposure control, adjustment of mA and/or KV based on patient size, or use of iterative reconstructive technique. FINDINGS: Parenchyma: Parenchymal volume loss with periventricular regions of low attenuation. No evidence of an acute vascular insult or acute parenchymal hemorrhage. Clips are seen as before creating artifact. No midline shift. No mass-effect. Right parietal occipital lobe encephalomalacia again seen and unchanged. Extraaxial Spaces: Diffusely prominent. No subdural or epidural collections identified. Ventricles: Enlarged ventricles with ex-vacuo dilatation of the temporal and occipital horns, as before. Sinuses and Orbits: Fluid level present in the right sphenoid sinus. Remainder of the paranasal sinuses are clear. Diffuse right mastoid effusion again seen left mastoid air cells are clear. Bones: No acute fracture. Postsurgical changes involving the right parietal bone. Other: Globes and orbits are unremarkable. Vascular calcifications. IMPRESSION: 1. No acute intracranial abnormality is identified. 2. Parenchymal volume loss and chronic white matter changes. Right parietal/occipital lobe encephalomalacia, stable. 3. Right mastoid effusion without significant change. 4. Right sphenoid sinus disease. RADIA
[2018-04-13] MEDS ORDERED: SODIUM CHLORIDE FLUSH 0.9% 10 ML SYRINGE IVP PRN (14:54)
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
[2018-04-13] MEDS ORDERED: ZINC OXIDE 20% OINT 28.35 GM TUBE TOP PRN (16:00)
[2018-04-13] MEDS ORDERED: CARBOXYMETHYLCELLULOSE OPHTH DROPS EACHEYE PRN (16:28)
[2018-04-13] MEDS ORDERED: LORazepam 0.5 MG TABLET PO PRN (16:28)
[2018-04-13] MEDS ORDERED: ATROPINE 1% OPHTH DROPS 2 ML SL PRN (16:28)
[2018-04-13] MEDS ORDERED: LORazepam 2 MG/ML VIAL IVP PRN (16:28)
[2018-04-13] MEDS ORDERED: MORPHINE SOL 10 MG/0.5 ML SYRINGE PO PRN (16:28)
[2018-04-13] MEDS ORDERED: HALOPERIDOL 5 MG/ML VIAL IVP PRN (16:28)
[2018-04-13] MEDS ORDERED: MORPHINE 2 MG/ML CARPUJECT IVP PRN (16:28)
[2018-04-13] MEDS ORDERED: SCOPOLAMINE PATCH TOP PRN (16:28)
[2018-04-13] MEDS: SODIUM CHLORIDE 0.9% 1,000 ML IV SCH (17:06)
[2018-04-13] MEDS: SODIUM CHLORIDE FLUSH 0.9% 10 ML SYRINGE IVP SCH (17:06)
[2018-04-14] MEDS: SODIUM CHLORIDE FLUSH 0.9% 10 ML SYRINGE IVP SCH ×3 (01:06→17:05)
[2018-04-14] MEDS: SODIUM CHLORIDE 0.9% 1,000 ML IV SCH ×2 (04:13→12:38)
[2018-04-14] MEDS: POLYETHYLENE GLYCOL 3350 17 GM PACKET PO SCH (09:30)
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
[2018-04-14] MEDS: CLINDAMYCIN 600 MG/50 ML 50 ML IV SCH ×2 (12:38→18:02)
[2018-04-15] MEDS: CLINDAMYCIN 600 MG/50 ML 50 ML IV SCH ×4 (00:27→18:20)
[2018-04-15] MEDS: SODIUM CHLORIDE FLUSH 0.9% 10 ML SYRINGE IVP SCH ×2 (01:17→08:17)
[2018-04-15] MEDS: SODIUM CHLORIDE 0.9% 1,000 ML IV SCH (02:07)
[2018-04-15] MEDS: POLYETHYLENE GLYCOL 3350 17 GM PACKET PO SCH (08:16)
[2018-04-15 10:08] VITALS: BP 109/67
[2018-04-15] MEDS ORDERED: POLYETHYLENE GLYCOL 3350 17 GM PACKET PO PRN (11:59)
--- NOTE | 2018-04-15 12:02 | PROVIDER PROGRESS NOTE ---
Subjective - Prog Note Date Prog Note Date: 04/15/18 Prog Note Time: 11:00 - Subjective Pt reports feeling: No change Subjective: Carlota cannot answer questions and appears comfortable. Deniz was given a medical update who wishes to continue comfort cares. Current Medications - Current Medications Current Medications: Active Medications Atropine Sulfate (Isopto Atropine 1% Ophth Drops) 1 - 4 drops SL Q2H PRN PRN Reason: Excessive secretions Carboxymethylcellulose (Refresh 1% Ophth Drops) 1 drops EACHEYE QID PRN PRN Reason: Dry Eye Clindamycin HCl (Cleocin) 300 mg PO Q6HR LORI Clindamycin Phosphate (Cleocin 600 Mg/50 Ml) 50 mls @ 100 mls/hr IV Q6HR LORI Last Infusion: 04/15/18 11:53 Dose: Infused Lorazepam (Ativan) 1 mg PO Q6H PRN PRN Reason: Anxiety/Agitation Lorazepam (Ativan Inj (Vial)) 1 mg IVP Q6H PRN PRN Reason: Anxiety/Agitation Morphine Sulfate (Roxanol) 10 mg PO Q2HR PRN PRN Reason: PAIN Last Admin: 04/14/18 04:12 Dose: 10 mg Multi-Ingredient Ointment (Zinc Oxide) 1 applic TOP PRN PRN PRN Reason: Skin Care Stop: 04/19/18 15:59 Polyethylene Glycol (Miralax) 17 gm PO DAILY PRN PRN Reason: Constipation Scopolamine HBr (Transderm-Scop) 1 patch TOP Q3D PRN PRN Reason: Excessive Secretions Aspirin [Aspirin EC] 81 mg PO 0800 08/24/16 Docusate Sodium 200 mg PO 0800,199908/24/16 Simvastatin [Zocor] 20 mg PO 199908/24/16 lamoTRIgine [LaMICtal] 75 mg PO 0800,199908/24/16 levETIRAcetam [Levetiracetam] 500 mg PO 199908/24/16 Citalopram [CeleXA] 10 mg PO 199903/27/17 Risperidone [Risperidone Odt] 0.25 mg PO 0800,199907/16/17 Calcium Carbonate [Jnmy-Rjt-886] 500 mg PO 0800,1200,199904/13/18 Cholecalciferol (Vitamin D3) [Vitamin D3] 2,000 unit PO 0800 04/13/18 Ferrous Sulfate 325 mg PO 2000 04/13/18 Objective - Vital Signs/Intake & Output Reviewed Vital Signs: Yes Vital Signs: Vital Signs x48h Temp Pulse Resp BP Pulse Ox 04/15/18 10:05 36.8 C 94 24 109/67 99 Intake & Output: Intake & Output 04/12/18 04/13/18 04/14/18 04/15/18 23:59 23:59 23:59 23:59 Intake Total 100 2185.385 1075 Output Total 150 500 250 Balance -50 1685.385 825 - Objective General Appearance: positive: No acute distress, Lethargic Eyes Bilateral: positive: No lid inflammation Eyes: OU Conjunctivae pale ENT: positive: Pharynx nml, Dry mucous membranes Neck: positive: No JVD Respiratory: positive: Chest non-tender, Rhonchi Cardiovascular: positive: No gallop, Irregularly irregular, Systolic murmur, Decreased pulse(s) Peripheral Pulses: 1+ Radial (R), 1+ Radial (L) Abdomen: positive: Non-tender, Nml bowel sounds Back: positive: Nml inspection Skin: positive: No rash, Warm, Dry, Pallor Extremities: positive: Non-tender, Pedal edema, Joint swelling Neurologic/Psychiatric: positive: Disoriented to place, Disoriented to time, Weakness, Sensory loss, Slurred/abnml speech, Depressed mood/affect Reflexes: Bicep (R): 1+, Bicep (L): 1+ - Lab Results Fish Bones: 04/13/18 11:23 04/13/18 11:23 ABX Reporting Has patient been on IV antibiotics over the past 48 hours?: Yes Sepsis Event Note (H) - Evaluation Current Stage of Sepsis: Ruled out Assessment/Plan - Problem List (1) Aspiration pneumonia due to gastric secretions Impression: Treat with IV antibiotics. Qualifiers: Laterality: bilateral (2) UTI (urinary tract infection) Impression: Continue treatment with antibiotics. Unfortunately, the patient pulled out her araujo with the balloon intact as she is more alert now. We will leave the araujo out for comfort focused care. Qualifiers: Urinary tract infection type: site unspecified Hematuria presence: without hematuria Qualified Code(s): N39.0 - Urinary tract infection, site not spec ified (3) End of life care Impression: Follow comfort care orders. (4) Respiratory failure with hypoxia Qualifiers: Chronicity: acute Qualified Code(s): J96.01 - Acute respiratory failure with hypoxia (5) Seizure disorder Impression: Chronic, monitor and give lorazepam as needed. Continue seizure pads for safety. (6) Elevated troponin Impression: No further labs, stable.
[2018-04-15] MEDS: CLINDAMYCIN 150 MG CAPSULE PO SCH ×3 (12:20→23:59)
[2018-04-16] MEDS: CLINDAMYCIN 150 MG CAPSULE PO SCH ×2 (06:26→12:02)
[2018-04-16] MEDS ORDERED: LORazepam 0.5 MG TABLET PO PRN (08:11)
[2018-04-16] MEDS ORDERED: MORPHINE SOL 10 MG/0.5 ML SYRINGE PO PRN (08:11)
[2018-04-16] MEDS ORDERED: SCOPOLAMINE PATCH TOP SCH (09:00)
--- NOTE | 2018-04-16 13:34 | Discharge Plan ---
"Discharge Plan for SNF / LONGTERM - Discharge Plan And Transition Orders Disposition: 50 Hospice/Home DC/Xfer Condition: Stable Allergies and Adverse Reactions: Allergies Allergy/AdvReac Type Severity Reaction Status Date / Time No Known Drug Allergies Allergy Verified 04/13/18 11:10 - SNF / LONGTERM Transition Orders Admit to (Facility): Dr. Wang/Hospice provider Under the care of (Name): [facility] Discharge Diagnosis: Aspiration pneumonia (J69.0) new on this admission, no further antibiotics as the patient is progressing toward comfort cares only. Acute respiratory failure with hypoxia (J96.01) new on this admission, stable, and the patient has not been on oxygen for the past ~48 hours. UTI (urinary tract infection) (N39.0) Suspected, but the urine was not a culture specimen. End of life care (Z51.5) ongoing, stable. Elevated troponin (R74.8) stable. Dysphasia (R47.02) Palliative care feeding, ok to allow ice chips of thin liquid as per the patient request. Seizure disorder (G40.909) chronic, treat with oral liquid lorazepam. TBI (traumatic brain injury) (S06.9X9A) chronic, and new on this admission, stable. Treatments & Other Orders: Comfort focused cares to allow a natural peacefully. Oxygen Orders: Patient has not required supplemental oxygen for the past 48 hours, and when offered takes it off. Medication Orders: PLEASE REFER TO THE DISCHARGE MEDICATION LIST. Insulin Orders?: No - Medications New Prescriptions: Atropine 1% Ophth Drops [Isopto Atropine 1% Ophth Drops] 1 - 4 drops SL Q2H PRN #1 bottle PRN Reason: Excessive secretions LORazepam [Lorazepam Intensol] 2 mg PO Q6H #30 ml Morphine Sulfate [Morphine Sulf Oral (Roxanol)] 5 mg PO Q1H PRN #30 ml PRN Reason: Pain/Dyspnea Scopolamine 1 each TD Q3D #1 patch.td.3 - Diet Type: Geriatric Texture: Regular Liquids: [place] thick (Her oral intake is considered to be palliative only and enjoyable. Although we worry about her choking on thin liquids, she has preferred ice chips and water today.) May have monthly special meal: Yes - Therapies | Activity Activity: Additional Comments (bedrest, patient has become very weak after her heart attack, infection, and new brain damage that she should no longer walk, but can dangle to the edge of the bed with staff if warranted.) Additional Instructions: Hospice with comfort focused cares."
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
== END 2018-04-16 15:10 | disposition hospice, home (50) | DRG 177 ==
LOC: EDUNIT# → ED 10:59 → MS2 14:54
PROVIDERS: ADMIT Nurse Practitioner; ATTEND Nurse Practitioner
DX: J69.0 Pneumonitis due to inhalation of food and vomit (principal); R09.02 Hypoxemia; R41.82 Altered mental status, unspecified; J96.01 Acute respiratory failure with hypoxia; N39.0 Urinary tract infection, site not specified; R31.9 Hematuria, unspecified; E78.00 Pure hypercholesterolemia, unspecified; F03.91 Unspecified dementia, unspecified severity, with behavioral disturbance; F41.9 Anxiety disorder, unspecified; G40.909 Epilepsy, unspecified, not intractable, without status epilepticus; R74.8 Abnormal levels of other serum enzymes; R47.02 Dysphasia; F32.9 Major depressive disorder, single episode, unspecified; E78.5 Hyperlipidemia, unspecified; K21.9 Gastro-esophageal reflux disease without esophagitis; N28.9 Disorder of kidney and ureter, unspecified; M81.0 Age-related osteoporosis without current pathological fracture; D64.9 Anemia, unspecified; Z66 Do not resuscitate; Z51.5 Encounter for palliative care; R32 Unspecified urinary incontinence; R35.1 Nocturia; R35.0 Frequency of micturition; H54.7 Unspecified visual loss; F40.240 Claustrophobia; R29.6 Repeated falls; Z96.649 Presence of unspecified artificial hip joint; Z79.82 Long term (current) use of aspirin; Z87.820 Personal history of traumatic brain injury; Z85.841 Personal history of malignant neoplasm of brain; Z92.3 Personal history of irradiation
CPT/HCPCS: 36415; 51702; 70450; 71045; 80048; 81001; 81003; 83605; 84484; 85025; 87040; 87086; 93005; 94660; 96365; 99284

== ENCOUNTER 2018-04-16 15:20 | Outpatient (CLI) | payer MEDICARE, MEDICAID | END 2018-04-16 15:21 | disposition hospice, home (50) | LOC: EMS 15:20 | PROVIDERS: ATTEND Surgery | DX: R53.1 Weakness (principal); J69.0 Pneumonitis due to inhalation of food and vomit; Z74.01 Bed confinement status | CPT/HCPCS: A0425; A0428 ==